=== PATIENT | female | born 1965 | race Caucasian/White ===

== ENCOUNTER → 2017-08-06 09:40 | Outpatient (CLI) | payer BC, SELFPAY ==
[2017-08-06 11:18] LABS: Alanine Aminotransferase 44 U/L (12-78); Albumin Level 3.7 gm/dL (3.4-5.0); Albumin/Globulin Ratio 1.1 (1.1-1.8); Alkaline Phosphatase 68 U/L (46-116); Anion Gap 11.2 mEq/L (5-15); Aspartate Amino Transferase 22 U/L (15-37); Bilirubin,Total 0.4 mg/dL (0.2-1.0); Blood Urea Nitrogen 16 mg/dL (7-18); Calcium 9.1 mg/dL (8.5-10.1); Carbon Dioxide 30 mmol/L (21.0-32.0); Chloride 105 mmol/L (98-107); Chol/HDL Ratio 3.5 (1-3.5); Cholesterol 176 mg/dL (140-200); Creatinine,Serum 0.72 mg/dL (0.55-1.02); Estimated Glomerular Filt Rate 85 ml/min (>60); GFR (African American) 103 ML/MIN (>60); Globulin 3.5 gm/dl (1.3-3.2); Glucose 97 mg/dL (74-106); HDL Cholesterol 51 mg/dL (29-89); LDL Cholesterol 110 mg/dL (0-130); Potassium 4.2 mmoL/L (3.5-5.1); Sodium 142 mmol/L (136-145); Thyroid Stimulating Hormone 1.51 uIU/ml (0.358-3.740); Total Protein,Serum 7.2 gm/dL (6.4-8.2); Triglycerides 73 mg/dL (30-200); VLDL Cholesterol 15 mg/dL (0-40)
== END ==
PROVIDERS: Visit Provider Physician Assistant
DX: Z13.29 Encounter for screening for other suspected endocrine disorder (principal); Z13.220 Encounter for screening for lipoid disorders
CPT/HCPCS: 36415; 80053; 80061; 84443

== ENCOUNTER → 2019-01-13 08:06 | Outpatient (CLI) | payer BC, SELFPAY ==
--- NOTE | 2019-01-13 08:09 | MM_ITS ---
PROCEDURE: MM DIG SCREENING MAMM BI W/CAD CLINICAL INDICATION: screening There is a history of breast cancer patient's mother diagnosed after menopause COMPARISON: DMDXUL DIG MAMM-DX UNILATERAL-LT from 05/01/2010 DMSB DIG MAMM-SCREEN EMILY from 10/13/2014 DMSB DIG MAMM-SCREEN EMILY W/CAD from 11/07/2016 TECHNIQUE: Standard CC and MLO images were obtained. R2 CAD reviewed. FINDINGS: Breasts are composed primarily of fat with minimal scattered fibroglandular densities in each breast. There is a stable tiny asymmetric density deep to the nipple left breast. There is no suspicious lesion and no suspicious microcalcifications. IMPRESSION: Fatty type breast parenchyma with no suspicious lesions seen BI-RAD Category: 1 Negative FOLLOW-UP: 1YR 1 Year Follow-up (A letter has been sent to the patient regarding results of the study.) Dictated by: Dr. Marshall Castro MD 01/14/2019 10:[address] Marshall Castro MD in [place] 01/14/2019 10:19
== END ==
PROVIDERS: PCP Psychiatry & Neurology Sleep Medicine; Visit Provider Obstetrics & Gynecology
DX: Z12.31 Encounter for screening mammogram for malignant neoplasm of breast (principal)
CPT/HCPCS: 77067

== ENCOUNTER → 2020-01-04 13:25 | Outpatient (CLI) | payer BC, SELFPAY ==
--- NOTE | 2020-01-04 13:29 | XR_ITS ---
PROCEDURE: XR FOOT RT MIN 3V CLINICAL INDICATION: INJURY TO TOE ON RT FOOT Pain COMPARISON: No exams were available for comparison FINDINGS: There is a nondisplaced fracture involving the mid to distal shaft of the proximal phalanx of the 5th digit. This is nondisplaced. There may also be a nondisplaced fracture of the midshaft of the proximal phalanx of the 4th toe. The joint spaces are well-preserved. No significant degenerative/arthritic changes. No erosive changes evident. Other findings:Hypertrophic changes are present dorsally at the navicular cuneiform joint with subchondral cystic change of the navicular dorsally. IMPRESSION: Nondisplaced fracture proximal phalanx 5th digit and questionable nondisplaced fracture proximal phalanx 4th toe. Please correlate with clinical parameters Dictated by: Trevor Ellis MD 01/04/2020 13:47 Trevor Ellis MD in [facility] 01/04/2020 13:47
== END ==
PROVIDERS: PCP Family Medicine; Visit Provider Family Medicine
DX: S99.921A Unspecified injury of right foot, initial encounter (principal)
CPT/HCPCS: 73630

== ENCOUNTER 2020-02-15 10:15 | Emergency (ER) | payer BC, SELFPAY ==
[2020-02-15 11:17] VITALS: BP 108/84; PULSE 63; RESP 18; TEMP 36.8; O2SAT 100; BMI 32.5
[2020-02-15 11:20] VITALS: BP 109/84; PULSE 63; RESP 18; TEMP 36.8; O2SAT 100
--- NOTE | 2020-02-15 11:20 | HMH.EDUTC ---
[facility] [place] Impression: Encounter for laboratory testing for COVID-19 virus Disposition: Home, Self-Care Condition on Discharge: Good Instructions: Preventing the Spread of Coronavirus Discharge Instructions Additional Instructions: *Monitor Temp, Over the counter Motrin or Tylenol as directed/as needed Tylenol every 4 hours and Motrin every 6 hours (as long as your family doctor has told you that you can take it) for fever or pain. and straight to ER if unable to lower temp less than 101.0 after medication given *Warm salt water gargles may help to soothe the throat *Throat Lozenges *Warm fluids like tea with honey may help to soothe the throat *Sleep elevated *Humidifier/Vaporizer Follow up IMMEDIATELY for new or worsening symptoms or no Noticeable improvement over the next 48-72 hours. 911 for difficulty breathing or swallowing You were tested for today for COVID19 your test result should be back in the next 24-48 hours, you may call to the [facility] to see if your test results are back in the next 48 hours [phone] [facility] hours are 9am-9pm You was given a handout with instructions for Self Quarantine and Self isolation for while you wait on test results and what to do if they are positive If you are positive the Health Dept will be contacting you also Referrals: Lina Tinajero MD [Primary Care Provider] - As needed Forms: Work/School Release Time of Disposition: 11:25 Medical Decision Making - Kiran Inquiry Pt receiving controlled substance: No Kiran was queried for this patient: No Vital Signs: 02/15/20 11:17 02/15/20 11:20 Temperature 98.2 F 98.2 F Temperature Source Oral Pulse Rate 63 Pulse Rate [Left] 63 Respiratory Rate 18 18 Blood Pressure 109/84 L Blood Pressure [Right Arm] 108/84 L Blood Pressure Mean [Right Arm] 92 Blood Pressure Source [Right Arm] Automatic Cuff Blood Pressure Position [Right Arm] Sitting 02 Sat by Pulse Oximetry 100 Oxygen Delivery Method Room Air Orders (Tests/Meds): ORDERS Category Date Time Status Covid-19 Nasal PCR Sendout [facility] 02/15/20 11:00 [place] [facility] [place] - General Stated complaint: Covid test Time Seen by Provider: 02/15/20 11:23 Mode of Arrival: Ambulatory Source of Information: Patient Limitations: No Limitations Description of Symptoms (Recalled from Triage Doc. by RN): Covid test asymptomatic HEENT Symptoms (Recalled from RN notes): No Resp Symptoms (Recalled from RN notes): No Skin Symptoms (Recalled from RN notes): No MS Symptoms (Recalled from RN notes): No Functional Status (Recalled from RN notes): wnl - History of Present Illness Provider Complaint: Patient states that her son woke up this morning having COVID symptoms and wanted to get tested for COVID Denies any symptoms at this time - Related Data Home Medications Medication Instructions Recorded Confirmed metoprolol tartrate 50 mg tablet 50 mg PO BID 11/25/17 12/05/18 amoxicillin 500 mg capsule 500 mg PO TID 12/14/19 Previous Rx's Medication Instructions Recorded conjugated estrogens 0.9 mg tablet 0.9 mg PO DAILY #30 tab 12/14/19 Allergies Allergy/AdvReac Type Severity Reaction Status Date / Time acetaminophen [From Lortab] Allergy Mild nauseated, Verified 02/15/20 11:20 shaking hydrocodone [From Lortab] Allergy Mild nauseated, Verified 02/15/20 11:20 shaking - Worker's Comp Is this a Worker's Comp case?: No Is this an [facility] Worker's Comp?: No Is this a Janice Worker's Comp?: No [facility] History - Hepatitis A Screen Drug use history?: No High risk sexual behaviors?: No History of sexually transmitted infection?: No Currently employed?: No Childcare worker?: No Do you have indoor plumbing?: Yes Do you have electricity?: Yes Attestation statement:: This patient has been screened for Hepatitis A risk factors. I have reviewed the patient's past medical history: Yes Comment: Heart Arrythmia. HBP Amputati
[2020-02-16 12:47] LABS: Covid-19 Nasal PCR Sendout Lex Not Detected
== END 2020-02-15 11:34 | disposition home or self-care (01) ==
PROVIDERS: Emergency Provider Nurse Practitioner; PCP Family Medicine
DX: Z20.828 Contact with and (suspected) exposure to other viral communicable diseases (principal)
CPT/HCPCS: 99201; U0004

== ENCOUNTER 2020-07-09 20:31 | Observation (INO) | payer BC, SELFPAY ==
[2020-07-09 20:44] VITALS: BP 153/69; PULSE 99; RESP 20; TEMP 36.8; O2SAT 99; BMI 32.5
--- NOTE | 2020-07-09 20:57 | CT_ITS ---
PROCEDURE INFORMATION: Exam: CT Lumbar Spine With Contrast Exam date and time: 07/09/2020 8:57 PM Age: 55 years old Clinical indication: Low back pain; Additional info: Severe lower back pain TECHNIQUE: Imaging protocol: Computed tomography images of the lumbar spine with intravenous contrast. Radiation optimization: All CT scans at this facility use at least one of these dose optimization techniques: automated exposure control; mA and/or kV adjustment per patient size (includes targeted exams where dose is matched to clinical indication); or iterative reconstruction. Contrast material: ISOVUE; Contrast volume: 70 ml; Contrast route: IV; COMPARISON: No relevant prior studies available. FINDINGS: Vertebrae: There is no evidence of acute fracture. The facet joints demonstrate mild degenerative hypertrophy and sclerosis. Discs/Spinal canal/Neural foramina: The lumbar spine demonstrates mild degenerative changes at multiple levels. Disc space narrowing and bilateral neural foraminal narrowing noted at L2-L3 and L5-S1. Soft tissues: Unremarkable. IMPRESSION: 1. The lumbar spine demonstrates mild degenerative changes at multiple levels. 2. Disc space narrowing and bilateral neural foraminal narrowing noted at L2-L3 and L5-S1. 3. No evidence of acute fracture.
--- NOTE | 2020-07-09 20:57 | CT_ITS ---
PROCEDURE INFORMATION: Exam: CT Abdomen And Pelvis With Contrast Exam date and time: 07/09/2020 8:57 PM Age: 55 years old Clinical indication: Pain; Other: Low back; Patient HX: Right side; Additional info: Severe lower back pain TECHNIQUE: Imaging protocol: Computed tomography of the abdomen and pelvis with contrast. Radiation optimization: All CT scans at this facility use at least one of these dose optimization techniques: automated exposure control; mA and/or kV adjustment per patient size (includes targeted exams where dose is matched to clinical indication); or iterative reconstruction. Contrast material: ISOVUE; Contrast volume: 70 ml; Contrast route: IV; COMPARISON: No relevant prior studies available. FINDINGS: Mediastinal space: A small hiatal hernia is present. Liver: There is a diffuse decrease in hepatic parenchymal density, consistent with mild fatty infiltration. Gallbladder and bile ducts: Normal. No calcified stones. No ductal dilation. Pancreas: Normal. No ductal dilation. Spleen: Normal. No splenomegaly. Adrenal glands: Normal. No mass. Kidneys and ureters: Normal. No hydronephrosis. Stomach and bowel: A large amount of stool is noted throughout the colon. Appendix: No evidence of appendicitis. Intraperitoneal space: Normal. No significant fluid collection. Vasculature: The vasculature demonstrates diffuse mild atherosclerotic calcification. Lymph nodes: Unremarkable. No enlarged lymph nodes. Urinary bladder: Unremarkable as visualized. Reproductive: Unremarkable as visualized. Bones/joints: The lumbar spine demonstrates mild degenerative changes at multiple levels. Soft tissues: There is a fat-containing umbilical hernia. IMPRESSION: 1. There is a diffuse decrease in hepatic parenchymal density, consistent with mild fatty infiltration. 2. A large amount of stool is noted throughout the colon. 3. The lumbar spine demonstrates mild degenerative changes at multiple levels. 4. There is a fat-containing umbilical hernia.
--- NOTE | 2020-07-09 21:10 | HMH.EDBACK ---
ED Disposition Clinical Impression: Lumbar radiculopathy, Intractable pain Disposition: Admitted as Observation Condition on Discharge: Good Referrals: Lina Tinajero MD [Primary Care Provider] - - Critical Care Critical Care Time: No Attestation: On 07/09/20, the high probability of a clinically significant, sudden or life threatening deterioration of the following system(s) required my full and direct attention, intervention and personal management. The time I documented below is in addition to time spent performing reported procedures but includes the following listed in this critical care notation. Medical Decision Making - Medical Records Medical records reviewed: Yes: I reviewed the patient's medical records. - Kiran Inquiry Pt receiving controlled substance: No Vital Signs: 07/09/20 20:44 07/09/20 21:14 07/09/20 21:37 Temperature 98.2 F Temperature Source Oral Pulse Rate 62 60 Pulse Rate [Right] 99 H Respiratory Rate 20 Blood Pressure 138/77 166/77 H Blood Pressure [Right Arm] 153/69 H Blood Pressure Mean [Right Arm] 97 Blood Pressure Source [Right Arm] Automatic Cuff Blood Pressure Position [Right Arm] Supine 02 Sat by Pulse Oximetry 99 99 99 Oxygen Delivery Method Room Air - Lab Data Lab results reviewed: Yes: I reviewed the patient's lab results. Lab Results 07/09/20 21:11: WBC 6.5, RBC 4.43, Hgb 13.5, Hct 41.3, MCV 93.2, MCH 30.4, MCHC 32.6, RDW 12.4, Plt Count 183, MPV 8.9, Neut % (Auto) 48.2, Lymph % (Auto) 37.9, [place] % (Auto) 7.9, Eos % (Auto) 5.0, Baso % (Auto) 1.0, Neut # (Auto) 3.1, Lymph # (Auto) 2.5, [place] # (Auto) 0.5, Eos # (Auto) 0.3, Baso # (Auto) 0.1, ESR 19 07/09/20 21:11: Sodium 139, Potassium 4.0, Chloride 107, Carbon Dioxide 27, Anion Gap 9.0, BUN 15, Creatinine 0.70, Estimated Creat Clear 158, Estimated GFR 87, Est GFR ( Amer) 106, Glucose 99, Calcium 9.2, Total Bilirubin 0.4, AST 44 H, ALT 38, Alkaline Phosphatase 69, C-Reactive Protein 3.8, Total Protein 7.5, Albumin 4.2, Globulin 3.3 H, Albumin/Globulin Ratio 1.3, Procalcitonin 0.052 07/09/20 21:23: Urine Color Yellow, Urine Appearance Clear, Urine pH 7.0, Ur Specific [place] 1.010, Urine Protein Negative, Urine Glucose (UA) Negative, Urine Ketones Negative, Urine Blood 1+, Urine Nitrate Negative, Urine Bilirubin Negative, Urine Urobilinogen 0.2, Ur Leukocyte Esterase Negative, Urine RBC Occasional, Urine WBC Occasional, Ur Squamous Epith Cells 10-20, Urine Bacteria None Result diagrams: 07/09/20 21:11 07/09/20 21:11 Orders (Tests/Meds): ED MEDICATIONS Generic Name Dose Route Start Last Admin Trade Name Freq PRN Reason Stop Dose Admin Sodium Chloride 1,000 mls @ 999 mls/hr 07/09/20 21:00 07/09/20 21:13 Sod Chlor 0.9% 1000ml Bag IV 07/09/20 22:00 999 mls/hr .Q1H1M MAR Administration Discontinued Medications Generic Name Dose Route Start Last Admin Trade Name Freq PRN Reason Stop Dose Admin Hydromorphone HCl 1 mg 07/09/20 20:57 07/09/20 21:14 Hydromorphone 2mg/Ml Syringe IV 07/09/20 20:58 1 mg ONCE ONE Administration Hydromorphone HCl 1 mg 07/09/20 21:31 07/09/20 21:32 Hydromorphone 2mg/Ml Syringe IV 07/09/20 21:32 1 mg ONCE ONE Administration Iopamidol 140 ml 07/09/20 22:07 07/09/20 22:08 Iopamidol-370 (76%);100ml Bottle IV 07/09/20 22:08 140 ml ONCE ONE Administration Ketorolac Tromethamine 30 mg 07/09/20 21:31 07/09/20 21:32 Ketorolac 30mg/Ml Vial IV 07/09/20 21:32 30 mg ONCE ONE Administration Methylprednisolone Sodium Succinate 125 mg 07/09/20 20:57 07/09/20 21:14 Methylprednisolone Sod Succ 125mg Vial IV 07/09/20 20:58 125 mg ONCE ONE Administration Ondansetron HCl 4 mg 07/09/20 20:57 07/09/20 21:14 Ondansetron 4mg/2ml Vial IV 07/09/20 20:58 4 mg ONCE ONE Administration Sodium Chloride 10 ml 07/09/20 22:07 07/09/20 22:08 Sodium Chloride 0.9% 10ml Syr (Rad Only) IV 07/09/20 22:08 10 ml
[2020-07-09 21:14] VITALS: BP 138/77; PULSE 62; O2SAT 99
[2020-07-09 21:23] LABS: Basophils # 0.1 K/mm3 (0-0.2); Eosinophils # 0.3 K/mm3 (0.0-0.4); Hematocrit 41.3 % (37.0-47.0); Hemoglobin 13.5 g/dL (12.2-16.2); Lymphocytes # 2.5 K/mm3 (0.7-4.5); Lymphocytes % 37.9 % (10-50); Mean Corpuscular HGB Conc 32.6 g/dL (31.8-35.4); Mean Corpuscular Hemoglobin 30.4 pg (27.0-31.2); Mean Corpuscular Volume 93.2 fl (81-99); Mean Platelet Volume 8.9 fl (7.4-10.4); Monocytes # 0.5 K/mm3 (0.1-1.0); Monocytes % 7.9 % (1.7-9.3); Neutrophils # 3.1 K/mm3 (1.8-7.8); Neutrophils % 48.2 % (37.0-80.0); Platelet Count 183 K/mm3 (142-424); Red Blood Count 4.43 M/mm3 (4.20-5.40); Red Cell Distribution Width 12.4 % (11.5-17.5); White Blood Count 6.5 K/mm3 (4.8-10.8)
[2020-07-09 21:28] LABS: Microscopic, Urine URINE MICROSCOPIC (MICROSCOPIC)
[2020-07-09 21:29] LABS: Alanine Aminotransferase 38 U/L (12-78); Albumin Level 4.2 g/dl (3.5-5.0); Albumin/Globulin Ratio 1.3 (1.1-1.8); Alkaline Phosphatase 69 U/L (38-126); Aspartate Amino Transferase 44 U/L (14-36); Bilirubin,Total 0.4 mg/dl (0.2-1.3); Blood Urea Nitrogen 15 mg/dl (7-17); Calcium 9.2 mg/dl (8.4-10.2); Carbon Dioxide 27 mmol/L (22.0-30.0); Chloride 107 mmol/L (98-107); Creatinine Clearance Estimated 158 mL/min (50-200); Estimated Glomerular Filt Rate 87 ml/min (>60); GFR (African American) 106 ML/MIN (>60); Globulin 3.3 g/dL (1.3-3.2); Glucose 99 mg/dl (74-100); Sodium 139 mmol/L (136-145); Total Protein,Serum 7.5 g/dl (6.3-8.2)
[2020-07-09 21:33] LABS: Appearance,Urine CLEAR (Clear); Bilirubin,Urine Negative (Negative); Blood, Urine 1+ (Negative); Color,Urine YELLOW (Yellow); Glucose,Urine (UA) Negative (Negative); Ketones,Urine Negative (Negative); Leukocyte Esterase,Urine Negative (Negative); Nitrate,Urine Negative (Negative); Protein,Urine Negative (Negative); Urobilinogen,Urine 0.2 EU/dl (0.2)
[2020-07-09 21:34] LABS: C-Reactive Protein 3.8 mg/L (0-4)
[2020-07-09 21:37] VITALS: BP 166/77; PULSE 60; O2SAT 99
[2020-07-09 21:44] LABS: RBC,Urine Occasional #/hpf (0-3); WBC,Urine Occasional #/hpf (0-3)
[2020-07-09 21:48] LABS: Procalcitonin 0.052 ng/mL (0.0-2.0)
[2020-07-09 21:51] LABS: Erythrocyte Sedimentation Rate 19 mm/hr (0-30)
--- NOTE | 2020-07-09 22:03 | PC.NURSE ---
pt gone to radiology.
[2020-07-10 01:55] VITALS: BP 118/58; PULSE 60; RESP 16; TEMP 36.8; O2SAT 94
[2020-07-10 02:09] VITALS: BP 154/78; PULSE 60; RESP 16; TEMP 36.6; O2SAT 95; BMI 32.8
--- NOTE | 2020-07-10 02:09 | PC.NURSE ---
patient up to floor via wheelchair.
--- NOTE | 2020-07-10 04:00 | PC.NURSE ---
Patient arrived on floor at 0209 and in no acute distress. Patient admitted for Lower back pain. When patient arrived on floor, she said her pain was 0, 0-10 scale. Requested at the sign of pain to request pain Rx in order to avoid breakthrough. Patient resting comfortably with eyes closed.
--- NOTE | 2020-07-10 04:00 | PC.NURSE ---
I got admission vitals at 02:09 AND SINCE the patient was in so much discomfort and had fallen asleep the nurse just told me not to disturb her for 04:00 vitals
[2020-07-10 07:18] LABS: Basophils % 0.1 % (0.1-2.0); Eosinophils % 0.1 % (0.1-12.0); Hematocrit 40.3 % (37.0-47.0); Hemoglobin 13.3 g/dL (12.2-16.2); Lymphocytes # 0.8 K/mm3 (0.7-4.5); Lymphocytes % 16.9 % (10-50); Mean Corpuscular Hemoglobin 30.6 pg (27.0-31.2); Mean Corpuscular Volume 92.7 fl (81-99); Mean Platelet Volume 9.1 fl (7.4-10.4); Monocytes # 0.1 K/mm3 (0.1-1.0); Monocytes % 1.3 % (1.7-9.3); Neutrophils # 3.8 K/mm3 (1.8-7.8); Neutrophils % 81.6 % (37.0-80.0); Platelet Count 156 K/mm3 (142-424); Red Blood Count 4.35 M/mm3 (4.20-5.40); Red Cell Distribution Width 12.3 % (11.5-17.5); White Blood Count 4.6 K/mm3 (4.8-10.8)
[2020-07-10 07:29] LABS: Anion Gap 12.6 mEq/L (5-15); Blood Urea Nitrogen 15 mg/dl (7-17); Calcium 8.9 mg/dl (8.4-10.2); Carbon Dioxide 24 mmol/L (22.0-30.0); Chloride 106 mmol/L (98-107); Creatinine Clearance Estimated 186 mL/min (50-200); Estimated Glomerular Filt Rate 104 ml/min (>60); GFR (African American) 126 ML/MIN (>60); Glucose 175 mg/dl (74-100); Potassium 4.6 mmoL/L (3.5-5.1); Sodium 138 mmol/L (136-145)
[2020-07-10 07:35] VITALS: BP 147/73; PULSE 65; RESP 18; TEMP 36.7; O2SAT 95
--- NOTE | 2020-07-10 09:24 | HMH.PHAINT ---
MEDICATION RECONCILIATION COMPLETED ON PATIENT USING EXTERNAL FILL HISTORY FROM PHARMACY AND PATIENT INTERVIEW. -CURLY MUNIZ, RAVEND
--- NOTE | 2020-07-10 11:30 | P.CONPHA_ITS ---
[facility] Pharmacy VTE Monitoring - Patient Demographics Admission date: 07/09/20 Report Date: 07/10/20 Time: 11:30 Allergies/Adverse Reactions: Patient Allergies acetaminophen [From Lortab] Allergy (Mild, Verified 02/15/20 11:20) nauseated, shaking hydrocodone [From Lortab] Allergy (Mild, Verified 02/15/20 11:20) nauseated, shaking Height: 1.83 m Weight: 109.769 kg Patient Problems: Current Active Problems Lumbar radiculopathy (Acute) Intractable pain (Acute) - VTE Risk Labs: VTE Related Lab Results Hgb 13.3 g/dL (12.2-16.2) 07/10/20 06:15 Hct 40.3 % (37.0-47.0) 07/10/20 06:15 Plt Count 156 K/mm3 (142-424) 07/10/20 06:15 BUN 15 mg/dl (7-17) 07/10/20 06:15 Creatinine 0.60 mg/dl (0.52-1.04) 07/10/20 06:15 Estimated Creat Clear 186 mL/min (50-200) 07/10/20 06:15 VTE Risk Level: Very Low Risk - Prophylaxis VTE Prophylaxis Ordered?: Yes Types of VTE Prophylaxis: TEDS Knee High Location of Applied Device: Bilateral Lower Extremeties
--- NOTE | 2020-07-10 11:30 | HMH.PHAINT ---
MEDICATION RECONCILIATION COMPLETED ON PATIENT USING EXTERNAL FILL HISTORY FROM PHARMACY AND PATIENT INTERVIEW. -CURLY MUNIZ, RAVEND
--- NOTE | 2020-07-10 12:46 | HMH.HP ---
*Admission Date: 07/09/20 *Chief complaint: Low back pain on the right *History of present illness: This 55-year-old white female reports progressive low back pain on the right side. Its been worse over the past several days. It became so severe that she presented to the emergency room last night. Her pain was rated a 10 out of 10 according to her. She was unable to get much relief in the emergency room and was admitted. This morning she feels somewhat better. In the emergency room it was reported that she had pain down the right leg. This morning she states that the pain is localized to the low back on the right side and indicates the sacroiliac joint area. She does not report a specific injury. She is generally healthy. CT the in the emergency room showed some disc disease in the lumbosacral area. See report. [facility] History Medical History: Denies:: Diabetes Mellitus Type 1, Diabetes Mellitus Type 2 *Have you ever received a pneumonia vaccine?: No *Have you received a flu vaccine this season?: No Other Medical History: Denies: Fibromyalgia, Osteoporosis Laterality Cases: Right: Other (Rotator cuff repair 2015) Other Surgeries: Yes: Hysterectomy-Partial (Cervical cancer in situ) Amputation: No Fractures: No Comment: Surgery for varicose veins in 2006. Closed nondisplaced fracture of the middle phalanx of the lesser toe the right foot December 2019. - *Social History Smoking Status: Never smoker Alcohol Intake: never Substance Use Type: denies use *Occupational Status:: employed Housing: house Household Members: significant other, children *Travel in the last 8 weeks: None Family Hx:: Cancer (Mother with breast cancer), Coronary Artery Disease (Her maternal aunts), Diabetes Review of Systems - Constitutional Denies anorexia, Denies body ache(s), Denies chills - Eyes Denies blurry vision - ENT Denies abnormal hearing, Denies nasal congestion, Denies pain with swallowing - *Cardiovascular Denies chest pain, Denies generalized swelling, Denies leg swelling, Denies lightheadedness - *Respiratory Denies change in phlegm color, Denies chest congestion, Denies cough - *Gastrointestinal Denies abdominal pain, Denies change in bowel habits - *Genitourinary Denies abnormal vaginal bleeding - *Musculoskeletal Reports back pain, Reports radiating pain into limb, Denies muscle weakness, Denies body aches - Integumentary/Breasts Denies breast lump - *Neurologic Denies headache(s), Denies seizure-like activity - Allergic/Immunologic Denies GI upset with certain foods Meds Home Medications Medication Instructions Recorded Confirmed Type Estrogens, Conjugated [Premarin] 0.9 mg PO DAILY 07/10/20 07/10/20 History Metoprolol Succinate [Metoprolol 50 mg PO DAILY 07/10/20 07/10/20 History Succinate 50mg Tablet*] Allergies Allergy/AdvReac Type Severity Reaction Status Date / Time acetaminophen [From Lortab] Allergy Mild nauseated, Verified 02/15/20 11:20 shaking hydrocodone [From Lortab] Allergy Mild nauseated, Verified 02/15/20 11:20 shaking Exam Vital signs and Labs for Last 24 Hours: Temp Pulse Resp BP Pulse Ox 98.0 F 65 18 147/73 H 95 07/10/20 07:35 07/10/20 07:35 07/10/20 07:35 07/10/20 07:35 07/10/20 07:35 Laboratory Results - last 24 hr 07/09/20 21:11: WBC 6.5, RBC 4.43, Hgb 13.5, Hct 41.3, MCV 93.2, MCH 30.4, MCHC 32.6, RDW 12.4, Plt Count 183, MPV 8.9, Neut % (Auto) 48.2, Lymph % (Auto) 37.9, [place] % (Auto) 7.9, Eos % (Auto) 5.0, Baso % (Auto) 1.0, Neut # (Auto) 3.1, Lymph # (Auto) 2.5, [place] # (Auto) 0.5, Eos # (Auto) 0.3, Baso # (Auto) 0.1, ESR 19 07/09/20 21:11: Sodium 139, Potassium 4.0, Chloride 107, Carbon Dioxide 27, Anion Gap 9.0, BUN 15, Creatinine 0.70, Estimated Creat Clear 158, Estimated GFR 87, Est GFR ( Amer) 106, Glucose 99, Calcium 9.2, Total Bilirubin 0.4, AST 44 H, ALT 38, Alkaline Phosphatase 69, C-Reactive Protein 3.8, Total Protein 7.5
--- NOTE | 2020-07-10 13:14 | HMH.ACPN2 ---
Internal Medicine - PN: Subj *Date: 07/10/20 *Time: 13:14 Interval history: PROCEDURE NOTE: The patient stated that she is feeling much better. I was able to locate a trigger point at the right SI joint inferiorly. She agreed to an injection. The area was prepped with Betadine. She received an injection of 1-1/2 cc of lidocaine and 1 cc of Celestone at the site of tenderness. After the injection she had significant relief of pain. She was able to get up and move about without discomfort. Area was cleaned with hydrogen peroxide and a Band-Aid was placed. She was told that the lidocaine would wear off in an hour and that she might experience pain again, but that the Celestone would continue to work against inflammation to give relief. There were no complications to the procedure. Exam Vital signs and Labs for Last 24 Hours: Temp Pulse Resp BP Pulse Ox 98.0 F 65 18 147/73 H 95 07/10/20 07:35 07/10/20 07:35 07/10/20 07:35 07/10/20 07:35 07/10/20 07:35 Laboratory Results - last 24 hr 07/09/20 21:11: WBC 6.5, RBC 4.43, Hgb 13.5, Hct 41.3, MCV 93.2, MCH 30.4, MCHC 32.6, RDW 12.4, Plt Count 183, MPV 8.9, Neut % (Auto) 48.2, Lymph % (Auto) 37.9, [place] % (Auto) 7.9, Eos % (Auto) 5.0, Baso % (Auto) 1.0, Neut # (Auto) 3.1, Lymph # (Auto) 2.5, [place] # (Auto) 0.5, Eos # (Auto) 0.3, Baso # (Auto) 0.1, ESR 19 07/09/20 21:11: Sodium 139, Potassium 4.0, Chloride 107, Carbon Dioxide 27, Anion Gap 9.0, BUN 15, Creatinine 0.70, Estimated Creat Clear 158, Estimated GFR 87, Est GFR ( Amer) 106, Glucose 99, Calcium 9.2, Total Bilirubin 0.4, AST 44 H, ALT 38, Alkaline Phosphatase 69, C-Reactive Protein 3.8, Total Protein 7.5, Albumin 4.2, Globulin 3.3 H, Albumin/Globulin Ratio 1.3, Procalcitonin 0.052 07/09/20 21:23: Urine Color Yellow, Urine Appearance Clear, Urine pH 7.0, Ur Specific [place] 1.010, Urine Protein Negative, Urine Glucose (UA) Negative, Urine Ketones Negative, Urine Blood 1+, Urine Nitrate Negative, Urine Bilirubin Negative, Urine Urobilinogen 0.2, Ur Leukocyte Esterase Negative, Urine RBC Occasional, Urine WBC Occasional, Ur Squamous Epith Cells 10-20, Urine Bacteria None 07/10/20 06:15: WBC 4.6 L D, RBC 4.35, Hgb 13.3, Hct 40.3, MCV 92.7, MCH 30.6, MCHC 33.0, RDW 12.3, Plt Count 156, MPV 9.1, Neut % (Auto) 81.6 H, Lymph % (Auto) 16.9, [place] % (Auto) 1.3 L, Eos % (Auto) 0.1, Baso % (Auto) 0.1, Neut # (Auto) 3.8, Lymph # (Auto) 0.8, [place] # (Auto) 0.1, Eos # (Auto) 0.0, Baso # (Auto) 0.0 07/10/20 06:15: Sodium 138, Potassium 4.6, Chloride 106, Carbon Dioxide 24, Anion Gap 12.6, BUN 15, Creatinine 0.60, Estimated Creat Clear 186, Estimated GFR 104, Est GFR ( Amer) 126, Glucose 175 H D, Calcium 8.9, Magnesium 2.0 I & O for Last 24 hours: Intake & Output 07/08/20 07/09/20 07/10/20 07/11/20 11:59 11:59 11:59 11:59 Intake Total 1640 / 1640 Balance 1640 / 1640 Weight 242 lb Microbiology Reports for the Last 24 Hours: Microbiology 07/10/20 00:50 Nasopharyngeal Coronavirus COVID-19 PCR - Final Assessment and Plan (1) Sacroiliac joint pain Status: Acute Category: Medical Code(s): M53.3 - Sacrococcygeal disorders, not elsewhere classified (2) Intractable pain Status: Acute Category: Medical Code(s): R52 - Pain, unspecified (3) Lumbar radiculopathy Status: Acute Category: Medical Code(s): M54.16 - Radiculopathy, lumbar region (4) Family history of breast cancer in mother Status: Acute Category: Medical Code(s): Z80.3 - Family history of malignant neoplasm of breast (5) History of hysterectomy Status: Acute Category: Surgical Code(s): Z90.710 - Acquired absence of both cervix and uterus - Assessment and plan all Dx Assessment and Plan for all problems:: I plan to discharge patient home. She will be continued on prednisone 20 mg a day. She will receive hydrocodone 7.5MG/apap 325MG 4 times daily as needed, #15. She will be seen in follow-up in the offic
--- NOTE | 2020-07-15 19:22 | HMH.DCSUM ---
General - General Admission date:: 07/10/20 Discharge date: 07/10/20 HPI HPI: This 55-year-old white female reports progressive low back pain on the right side. Its been worse over the past several days. It became so severe that she presented to the emergency room last night. Her pain was rated a 10 out of 10 according to her. She was unable to get much relief in the emergency room and was admitted. This morning she feels somewhat better. In the emergency room it was reported that she had pain down the right leg. This morning she states that the pain is localized to the low back on the right side and indicates the sacroiliac joint area. She does not report a specific injury. She is generally healthy. CT the in the emergency room showed some disc disease in the lumbosacral area. See report. Hospital Course Hospital Course: The patient's abdominal/pelvic CT showed a large amount of stool in the colon and degenerative changes of the lumbar spine. There was also a fat-containing umbilical hernia. Her lumbar spine CT showed degenerative changes at multiple levels along with disc space narrowing of bilateral neural foraminal narrowing noted at L2-L3 and L5-S1. The patient was admitted and started on pain control. Dr. Tinajero injected Celestone and lidocaine at the site of tenderness near the SI joint on the right. There were no complications with the procedure and she was stable to be discharged home on prednisone 20 mg a day. She was also sent home with [facility] for pain. She will follow-up with Dr. Tinajero in the office. Objective Vital signs: Temp Pulse Resp BP Pulse Ox 98.0 F 65 18 147/73 H 95 07/10/20 07:35 07/10/20 07:35 07/10/20 07:35 07/10/20 07:35 07/10/20 07:35 Narrative: - Constitutional no acute distress - *Routine HEENT Exam Head: Present: normocephalic Eye: Present: PERRL. Absent: conjunctival icterus ENT: Present: mucous membranes moist - *Routine Neck Exam Present: supple - Routine Chest/Breast/Axilla Exam Chest wall: Absent: tenderness - *Routine Respiratory Exam Present: CTA bilaterally - *Routine Cardiovascular Exam Present: RRR. Absent: ectopic - *Routine Abdominal Exam Present: soft. Absent: tenderness - *Routine Rectal Exam Patient deferred: digital exam (Deferred) - *Routine Extremities Exam Absent: edema - Routine Back/Spine/Pelvis Exam Back/Spine: Present: pain with rotation. Absent: paraspinal tenderness (Specific tenderness at the right SI joint) Pelvis: Present: SI joint tenderness - *Routine Neurological Exam Present: alert, oriented X3, normal tone. Absent: sensory deficit, motor deficit Dorsiflexion of the great toes is strong and equal bilaterally. Deep tendon reflexes at the patella are equal and 2+ DS: Diagnosis - Discharge Diagnosis (1) Sacroiliac joint pain Status: Acute (2) Intractable pain Status: Acute (3) Lumbar radiculopathy Status: Acute (4) Family history of breast cancer in mother Status: Acute (5) History of hysterectomy Status: Acute Discharge Plan - Patient Discharge Instructions ACTIVITY: Limited activity DIET: advance to your usual diet Patient Instructions: DI for Lumbar Radiculopathy Forms: [facility] Work Release - Follow up Plan Follow up with: Lina Tinajero MD [Primary Care Provider] - (Appt Saturday) Disposition: Home, Self-Care Condition at discharge:: Stable Home Medications: Home Medications Medication Instructions Recorded Confirmed Type Estrogens, Conjugated [Premarin] 0.9 mg PO DAILY 07/10/20 07/10/20 History Metoprolol Succinate [Metoprolol 50 mg PO DAILY 07/10/20 07/10/20 History Succinate 50mg Tablet*] Tramadol HCl [Tramadol 50mg 50 mg PO QIDP PRN #15 tab 07/10/20 Rx Tab] predniSONE [Prednisone 20mg 20 mg PO DAILY #5 tab 07/10/20 Rx Tab] Prescriptions/Medication Reconciliation: New Tramadol HCl [Tramadol 50mg Tab
== END 2020-07-10 14:38 | disposition home or self-care (01) ==
LOC: ER 07-10 00:42 → 2ND 07-10 01:07
PROVIDERS: Admitting Provider Family Medicine; Emergency Provider Emergency Medicine; PCP Family Medicine; Visit Provider Family Medicine
DX: M54.16 Radiculopathy, lumbar region (principal); M53.3 Sacrococcygeal disorders, not elsewhere classified; Z80.3 Family history of malignant neoplasm of breast; Z90.710 Acquired absence of both cervix and uterus
CPT/HCPCS: 36415; 72132; 74177; 80048; 80053; 81001; 83735; 84145; 85025; 85651; 86140; 96365; 96375; 96376; 99284; G0378; J2405; Q9967; U0003

== ENCOUNTER → 2021-02-09 07:44 | Outpatient (CLI) | payer BC, SELFPAY ==
--- NOTE | 2021-02-09 07:51 | MM_ITS ---
PROCEDURE INFORMATION: Exam: MG Bilateral Screening 3D Mammography Exam date and time: 02/09/2021 7:51 AM Age: 56 years old Clinical indication: Encounter for screening mammogram for malignant neoplasm of breast TECHNIQUE: Imaging protocol: Bilateral screening tomosynthesis and 2D mammography including computer-aided detection (CAD) when performed. COMPARISON: 1. MG MM DIG SCREENING MAMM BI W/CAD 01/13/2019 8:32 AM 2. MG DMSB DIG MAMM-SCREEN EMILY W/CAD 11/07/2016 3:45 PM FINDINGS: MAMMOGRAPHY: Breast composition: The breasts are almost entirely fatty. Mass: None. Architectural distortion: None. Calcifications: No suspicious calcifications. Asymmetric density: None. Skin thickening: None. Axillary adenopathy: None. IMPRESSION: No mammographic evidence of malignancy. Annual screening is recommended unless otherwise clinically indicated. ASSESSMENT: BI-RADS Category 1: Negative
== END ==
PROVIDERS: PCP Family Medicine; Visit Provider Obstetrics & Gynecology
DX: Z12.31 Encounter for screening mammogram for malignant neoplasm of breast (principal)
CPT/HCPCS: 77063; 77067

== ENCOUNTER → 2021-02-19 10:23 | Outpatient (CLI) | payer BC, SELFPAY | PROVIDERS: PCP Family Medicine; Visit Provider Nurse Practitioner | DX: U07.1 COVID-19 (principal) | CPT/HCPCS: C9803; U0003; U0005 ==

== ENCOUNTER → 2021-10-23 12:02 | Outpatient (CLI) | payer BC, SELFPAY ==
--- NOTE | 2021-10-23 12:08 | XR_ITS ---
FINAL REPORT CLINICAL HISTORY: ANKLE PAIN,LEFT FINDINGS: LEFT ANKLE: Three views of the left ankle were obtained. There is no acute fracture or dislocation. Mild degenerative changes are seen. The mortise is intact. There is a plantar calcaneal spur. There is a chronic calcification inferior to the medial malleolus. There is no soft tissue abnormality. IMPRESSION: No acute bony abnormality. Reviewed, Interpreted and Dictated by Jed Rubio III, MD Transcribed by Gayle Gonzalez Authenticated and [facility]
== END ==
PROVIDERS: PCP Family Medicine; Visit Provider Nurse Practitioner Family
DX: M25.572 Pain in left ankle and joints of left foot (principal)
CPT/HCPCS: 73610

== ENCOUNTER → 2021-12-15 11:40 | Outpatient (CLI) | payer BC, SELFPAY ==
--- NOTE | 2021-12-15 11:50 | XR_ITS ---
FINAL REPORT CLINICAL HISTORY: foot pain FINDINGS: LEFT FOOT Three views of the left foot demonstrate no acute fracture or dislocation. The visualized joint spaces are normally aligned. There are mild degenerative changes. There is a plantar calcaneal spur. IMPRESSION: Mild degenerative change with no acute bony abnormality. Reviewed, Interpreted and Dictated by Jed Rubio III, MD Transcribed by Lorenza Murry Authenticated and [facility]
== END ==
PROVIDERS: PCP Family Medicine; Visit Provider Orthopaedic Surgery
DX: M79.672 Pain in left foot (principal)
CPT/HCPCS: 73630

== ENCOUNTER → 2021-12-29 14:01 | Outpatient (CLI) | payer BC, SELFPAY ==
--- NOTE | 2021-12-29 14:01 | MR_ITS ---
FINAL REPORT CLINICAL HISTORY: ankle pain. 12 YEARS AGO TORE TENDON. MEDIAL SIDED FOOT PAIN NEAR ARCH. NO RECENT INJURY OR TRAUMA. PAIN WHEN BENDING OR EXTENDING. FINDINGS: Multiplanar MR imaging of the left ankle was performed without contrast. Mild degenerative changes are present. The bony structures are intact without evidence of fracture, bone bruise or marrow edema. No osteochondral lesion is identified. The anterior talofibular and calcaneofibular ligaments are not seen, presumably torn. There is posterior tibial tendinosis, tenosynovitis, with a small longitudinal tear. There is tendinosis of the anterior tibial tendon. There is thickening of the posterior plantar aponeurosis with a plantar fasciitis and a small partial tear. Small tibiotalar joint effusion is identified. The musculature is intact. There is no evidence of soft tissue mass or cyst. IMPRESSION: Presumed tears of the anterior talofibular and calcaneofibular ligaments. Posterior tibial tendinosis, tenosynovitis with small partial tear. Tendinosis of the anterior tibial tendon. Plantar fasciitis with a small partial tear. Reviewed, Interpreted and Dictated by Jed Rubio III, MD Transcribed by Alejandra Smith Authenticated and [facility]
== END ==
PROVIDERS: PCP Family Medicine; Visit Provider Orthopaedic Surgery
DX: M25.572 Pain in left ankle and joints of left foot (principal)
CPT/HCPCS: 73721

== ENCOUNTER → 2022-01-25 15:10 | Outpatient (CLI) | payer BC, SELFPAY ==
--- NOTE | 2022-01-25 15:10 | MM_ITS ---
PROCEDURE INFORMATION: Exam: MG Bilateral Diagnostic Breast Tomosynthesis Exam date and time: 01/25/2022 3:05 PM Age: 56 years old Clinical indication: Palpable abnormality in the right breast TECHNIQUE: Imaging protocol: Bilateral Diagnostic tomosynthesis and 2D mammography including computer-aided detection (CAD) when performed. Unilateral or bilateral exam. COMPARISON: 1. MG MM DIG SCREENING MAMM BI W/CAD 02/09/2021 7:58 AM 2. MG MM DIG SCREENING MAMM BI W/CAD 01/13/2019 8:32 AM FINDINGS: MAMMOGRAPHY: The breast tissue is almost entirely fatty. There is no stellate mass, architectural distortion or suspicious microcalcifications in either breast to suggest malignancy. A skin marker was placed over an area of palpable concern in the right approximate 6 o'clock axis No skin thickening or axillary adenopathy. IMPRESSION: Patient to return for right breast ultrasound for full evaluation of a palpable abnormality. ASSESSMENT: BI-RADS Category 0: Incomplete- Need Additional Imaging Evaluation and/or Prior Mammograms for Comparison
== END ==
PROVIDERS: PCP Family Medicine; Visit Provider Obstetrics & Gynecology
DX: Z12.31 Encounter for screening mammogram for malignant neoplasm of breast (principal)
CPT/HCPCS: 77063; 77067

== ENCOUNTER → 2022-03-05 10:36 | Outpatient (CLI) | payer BC, SELFPAY ==
--- NOTE | 2022-03-05 10:40 | US_ITS ---
PROCEDURE INFORMATION: Exam: US Right Breast, Complete Exam date and time: 03/05/2022 11:06 AM Age: 57 years old Clinical indication: Dr cass mass 6:00; RT. Breast lump TECHNIQUE: Imaging protocol: Complete ultrasound of all four quadrants of the Right breast and the retroareolar regions, including ultrasound of the axilla when performed. COMPARISON: MG MM DIG SCREENING MAMM BI W/CAD 01/25/2022 3:05 PM FINDINGS: Breast: Sonographic images of the right breast including the retroareolar region, all 4 quadrants and the axilla do not demonstrate any solid or cystic masses. This is with particular attention to the 6 o'clock axis where a palpable abnormality was noted. Predominantly adipose tissue is noted. No architectural distortion or acoustical shadowing. No skin thickening or axillary adenopathy. Review of the patient's most recent mammogram dated 01/25/2022 does not demonstrate any suspicious findings. IMPRESSION: No sonographic evidence of malignancy. Further evaluation of a palpable abnormality should be based on clinical grounds regardless of radiographic findings or lack thereof.Annual mammographic screening is recommended unless otherwise clinically indicated. ASSESSMENT: BI-RADS Category 1: Negative
--- NOTE | 2022-03-05 10:41 | CT_ITS ---
FINAL REPORT TECHNIQUE: Thin section axial CT images of the facial bones and sinuses were obtained without contrast. Coronal reformatted images were also obtained. This study was performed with techniques to keep radiation doses as low as reasonably achievable, (ALARA). Individualized dose reduction techniques using automated exposure control or adjustment of mA and/or kV according to the patient's size were employed. CLINICAL HISTORY: SINUSITIS FINDINGS: CT SINUSES There is no evidence of mucosal thickening. No fluid levels are identified. The ostiomeatal units have an unremarkable appearance. There is mild rightward nasal septal deviation. There is paradoxical middle turbinates. No fracture or acute bony abnormality is identified. IMPRESSION: No evidence of mucosal thickening. Paradoxical middle turbinates. Reviewed, Interpreted and Dictated by Jed Ruboi III, MD Transcribed by Lorenza Murry Authenticated and [facility]
== END ==
PROVIDERS: PCP Family Medicine; Visit Provider Family Medicine
DX: N63.0 Unspecified lump in unspecified breast (principal); J01.90 Acute sinusitis, unspecified
CPT/HCPCS: 70486; 76641

== ENCOUNTER 2022-04-08 08:00 | Emergency (ER) | payer BC, SELFPAY ==
[2022-04-08 08:10] VITALS: BP 124/70; PULSE 73; RESP 20; TEMP 37.8; O2SAT 99; BMI 31.8
--- NOTE | 2022-04-08 08:13 | EXP.UTC ---
Discharge Plan Disposition Patient Disposition: Home, Self-Care Condition: Good Prescriptions Prescriptions: New amoxicillin [amoxicillin] 500 mg tablet 500 mg PO TID 10 Days Qty: 30 0RF benzonatate [benzonatate] 100 mg capsule 100 mg PO TIDP PRN (Reason: Cough) Qty: 30 0RF methylprednisolone 4 mg Tablets,Dose Pack 4 mg PO DIRECTED Qty: 21 0RF No Action conjugated estrogens 0.9 mg tablet 0.9 mg PO DAILY Qty: 30 11RF Rx Instructions: cyclically metoprolol succinate 50 MG tablet extended release 24 hr 50 mg PO DAILY Referrals Follow up/Referrals: Lina Tinajero MD [Primary Care Provider] - See instructions Activity Restrictions/Add. Instructions Additional Instructions/Restrictions: Drink plenty of fluids. Take tylenol or ibuprofen for pain or fever. Take the medications as directed. Follow up with your regular doctor. GO TO THE ER FOR ANY WORSENING SYMPTOMS Clinical Impressions Clinical Impression: Pharyngitis, Acute viral syndrome Stand Alone Forms Stand Alone Forms: Work/School Release Instructions Patient Instructions: Sore Throat, DI for Pharyngitis/Tonsillopharyngitis -- Adult, Coronavirus Disease 2019, Preventing the Spread of Coronavirus Discharge Instructions [place] ED Provider: [place] [facility] [place] General Stated complaint: sore throat,body aches,ear pain Time Seen by Provider: 04/08/22 08:13 History of Present Illness Provider Complaint: She states that for the past 5 days she has had sore throat, chills, chest congestion, and sinus congestion. Related Data Home Medications Medication Instructions Recorded Confirmed metoprolol succinate 50 mg 50 mg PO DAILY Hypertension 07/10/20 04/08/22 tablet,extended release 24 hr Previous Rx's Medication Instructions Recorded conjugated estrogens 0.9 mg tablet 0.9 mg PO DAILY Post menopause #30 01/25/22 tabs amoxicillin 500 mg tablet 500 mg PO TID 10 days #30 tabs 04/08/22 benzonatate 100 mg capsule 100 mg PO TIDP PRN Cough #30 caps 04/08/22 methylprednisolone 4 mg tablets in 4 mg PO DIRECTED #21 tabs 04/08/22 a dose pack Allergies Allergy/AdvReac Type Severity Reaction Status Date / Time acetaminophen [From Lortab] Allergy Mild nauseated, Verified 04/08/22 08:29 shaking hydrocodone [From Lortab] Allergy Mild nauseated, Verified 04/08/22 08:29 shaking PFSH PFS Disclaimer: The information contained in this section may have been updated after the patient was seen, as this information can be updated by other users. 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 current occupational exposures/hazards: No caffeine: No ROS Obtained: Yes All systems reviewed & no additional complaints except as documented Constitutional Constitutional: Reports chills and Reports fever(s) Eyes Eyes: Denies eye discharge ENT Ears, Nose, Mouth, and Throat: Reports as per HPI Cardiovascular Cardiovascular: Denies chest pain Respiratory Respiratory: Denies chest congestion and Reports cough Gastrointestinal Gastrointestingal: Reports nausea; Denies abdominal pain, constipation, cramping, diarrhea or vomiting Musculoskeletal Musculoskeletal: Denies arthralgias Integumentary/Breasts Skin/Breast: Denies rash Neurologic Neurologic: Denies paresthesias Physical Exam General General appearance: alert and in no apparent distress Head Head exam: atraumatic, normocephalic and normal inspection Eye Eye exam: Present normal appearance, PERRL and EOMI ENT ENT e
[2022-04-08 08:25] LABS: UTC Strep Screen (Rapid) Negative (Negative)
[2022-04-08 08:26] LABS: UTC Influenza A Antigen Negative (Negative); UTC Influenza B Antigen Negative (Negative)
[2022-04-08 08:53] VITALS: BP 124/70; PULSE 73; RESP 20; TEMP 37.3; O2SAT 99
== END 2022-04-08 08:52 | disposition home or self-care (01) ==
PROVIDERS: Emergency Provider Nurse Practitioner Family; PCP Family Medicine
DX: J02.9 Acute pharyngitis, unspecified (principal); B34.9 Viral infection, unspecified
CPT/HCPCS: 87804; 87880; 99212; 99214; C9803; G0463; U0003; U0005

== ENCOUNTER 2022-05-19 15:45 | Emergency (ER) | payer BC, SELFPAY ==
[2022-05-19 15:55] VITALS: BMI 32.5
--- NOTE | 2022-05-19 15:55 | XR_ITS ---
FINAL REPORT CLINICAL HISTORY: Acute right hand pain with injury COMPARISON: None FINDINGS: RIGHT HAND: 3 views of the right hand were obtained. There is no acute fracture or dislocation. There is mild degenerative change. Soft tissues are unremarkable. IMPRESSION: No acute process. Reviewed, Interpreted and Dictated by Jed Rubio III, MD Transcribed by Nat Lara Authenticated and [facility]
[2022-05-19 16:20] VITALS: BP 111/71; PULSE 62; RESP 22; TEMP 36.8; O2SAT 97; BMI 31.8
--- NOTE | 2022-05-19 16:44 | EXP.UTC ---
Discharge Plan Disposition Patient Disposition: Home, Self-Care Condition: Good Prescriptions Prescriptions: No Action conjugated estrogens 0.9 mg tablet 0.9 mg PO DAILY Qty: 30 11RF Rx Instructions: cyclically metoprolol succinate 50 MG tablet extended release 24 hr 50 mg PO DAILY amoxicillin [amoxicillin] 500 mg tablet 500 mg PO TID 10 Days Qty: 30 0RF benzonatate [benzonatate] 100 mg capsule 100 mg PO TIDP PRN (Reason: Cough) Qty: 30 0RF methylprednisolone 4 mg Tablets,Dose Pack 4 mg PO DIRECTED Qty: 21 0RF Referrals Follow up/Referrals: Lina Tinajero MD [Primary Care Provider] - See instructions Activity Restrictions/Add. Instructions Additional Instructions/Restrictions: right hand wrapped in marco with cold pack applied. Will call with x-ray results. Clinical Impressions Clinical Impression: Fall with injury Qualifiers: Encounter type: initial encounter Qualified Code(s): W19.XXXA - Unspecified fall, initial encounter Hand contusion Qualifiers: Encounter type: initial encounter Laterality: right Qualified Code(s): S60.221A - Contusion of right hand, initial encounter Instructions Patient Instructions: DI for Hand Injury Discharge ED Provider: Britt Lpóez [facility] [place] General Stated complaint: AO 05/19@WM INJURED r wRIST Mode of Arrival: Ambulatory Source of Information: Patient Limitations: No Limitations Time Seen by Provider: 05/19/22 16:44 Description of Symptoms (Recalled from Triage Doc. by RN): PATIENT C/O INJURY TO RIGHT HAND AFTER FALLING IN [employer] LOT TODAY [employer] 1 HOUR [employer]OLLER [employer] HEENT Symptoms (Recalled from RN notes): No Resp Symptoms (Recalled from RN notes): No Skin Symptoms (Recalled from RN notes): No MS Symptoms (Recalled from RN notes): Yes Functional Status (Recalled from RN notes): WNL History of Present Illness Provider Complaint: Pt states that she fell in the [employer] parking lot about an hour prior to arriving to the [facility]. She states that her right hand was injured in the fall. Related Data Home Medications Medication Instructions Recorded Confirmed metoprolol succinate 50 mg 50 mg PO DAILY Hypertension 07/10/20 04/08/22 tablet,extended release 24 hr Previous Rx's Medication Instructions Recorded conjugated estrogens 0.9 mg tablet 0.9 mg PO DAILY Post menopause #30 01/25/22 tabs amoxicillin 500 mg tablet 500 mg PO TID 10 days #30 tabs 04/08/22 benzonatate 100 mg capsule 100 mg PO TIDP PRN Cough #30 caps 04/08/22 methylprednisolone 4 mg tablets in 4 mg PO DIRECTED #21 tabs 04/08/22 a dose pack Allergies Allergy/AdvReac Type Severity Reaction Status Date / Time acetaminophen [From Lortab] Allergy Mild nauseated, Verified 04/08/22 08:29 shaking hydrocodone [From Lortab] Allergy Mild nauseated, Verified 04/08/22 08:29 shaking Worker's Comp Is this a Worker's Comp case?: No [facility] Disclaimer: The information contained in this section may have been updated after the patient was seen, as this information can be updated by other users. 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
[2022-05-19 17:22] VITALS: BP 111/71; PULSE 62; RESP 22; TEMP 36.8; O2SAT 97
== END 2022-05-19 17:25 | disposition home or self-care (01) ==
PROVIDERS: Emergency Provider Nurse Practitioner Family; PCP Family Medicine
DX: S60.221A Contusion of right hand, initial encounter (principal); W18.39XA Other fall on same level, initial encounter
CPT/HCPCS: 73130; 99212; 99213; G0463

== ENCOUNTER 2022-09-27 17:25 | Emergency (ER) | payer BC, SELFPAY ==
[2022-09-27 17:25] VITALS: BP 181/115; PULSE 81; RESP 18; TEMP 36.8; O2SAT 96; BMI 32.5
--- NOTE | 2022-09-27 17:33 | EXP.UTC ---
Discharge Plan Disposition Patient Disposition: Home, Self-Care Condition: Good Prescriptions Prescriptions: New fluconazole [Diflucan] 100 mg tablet 100 mg PO DAILY 3 Days Qty: 3 0RF methylprednisolone 4 mg Tablets,Dose Pack 4 mg PO DIRECTED Qty: 21 0RF nystatin 100,000 unit/gram cream 1 applic topical BID Qty: 15 3RF No Action conjugated estrogens 0.9 mg tablet 0.9 mg PO DAILY Qty: 30 11RF Rx Instructions: cyclically metoprolol succinate 50 MG tablet extended release 24 hr 50 mg PO DAILY amoxicillin [amoxicillin] 500 mg tablet 500 mg PO TID 10 Days Qty: 30 0RF benzonatate [benzonatate] 100 mg capsule 100 mg PO TIDP PRN (Reason: Cough) Qty: 30 0RF methylprednisolone 4 mg Tablets,Dose Pack 4 mg PO DIRECTED Qty: 21 0RF Referrals Follow up/Referrals: Lina Tinajero MD [Primary Care Provider] - See instructions Activity Restrictions/Add. Instructions Additional Instructions/Restrictions: Don't start the oral steroids until tomorrow. Apply the nystatin to your underarms as directed. Wear loose fitting cotton clothing and try to let air circulate to your underarms as much as possible for the next few days. Follow up with your regular doctor. GO TO THE ER FOR ANY WORSENING SYMPTOMS OR CONCERNS Clinical Impressions Clinical Impression: Yeast infection of the skin, Contact dermatitis of face Instructions Patient Instructions: Fluconazole, Methylprednisolone Injection, DI for Yeast Infection-Skin, Nystatin Topical Discharge ED Provider: [place] [facility] [place] General Stated complaint: rash Time Seen by Provider: 09/27/22 17:33 History of Present Illness Provider Complaint: She states that she has a rash of both her axilla and on her face. She thinks that she has been exposed to poison [place]. Related Data Home Medications Medication Instructions Recorded Confirmed metoprolol succinate 50 mg 50 mg PO DAILY Hypertension 07/10/20 04/08/22 tablet,extended release 24 hr Previous Rx's Medication Instructions Recorded conjugated estrogens 0.9 mg tablet 0.9 mg PO DAILY Post menopause #30 01/25/22 tabs amoxicillin 500 mg tablet 500 mg PO TID 10 days #30 tabs 04/08/22 benzonatate 100 mg capsule 100 mg PO TIDP PRN Cough #30 caps 04/08/22 methylprednisolone 4 mg tablets in 4 mg PO DIRECTED #21 tabs 04/08/22 a dose pack fluconazole 100 mg tablet 100 mg PO DAILY 3 days #3 tabs 09/27/22 (Diflucan) methylprednisolone 4 mg tablets in 4 mg PO DIRECTED #21 tabs 09/27/22 a dose pack nystatin 100,000 unit/gram topical 1 applic topical BID #15 grams 09/27/22 cream Allergies Allergy/AdvReac Type Severity Reaction Status Date / Time acetaminophen [From Lortab] Allergy Mild nauseated, Verified 04/08/22 08:29 shaking hydrocodone [From Lortab] Allergy Mild nauseated, Verified 04/08/22 08:29 shaking PFSH PFSH Disclaimer: The information contained in this section may have been updated after the patient was seen, as this information can be updated by other users. 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
[2022-09-27 18:06] VITALS: BP 181/115; PULSE 81; RESP 18; TEMP 36.8; O2SAT 96
== END 2022-09-27 18:07 | disposition home or self-care (01) ==
PROVIDERS: Emergency Provider Nurse Practitioner Family; PCP Family Medicine
DX: L25.9 Unspecified contact dermatitis, unspecified cause (principal); B37.2 Candidiasis of skin and nail
CPT/HCPCS: 96372; 99212; 99214; G0463

== ENCOUNTER → 2023-01-28 10:50 | Outpatient (CLI) | payer BC, SELFPAY ==
--- NOTE | 2023-01-28 10:57 | MM_ITS ---
PROCEDURE INFORMATION: Exam: MG Bilateral Screening 3D Mammography Exam date and time: 01/28/2023 10:58 AM Age: 57 years old Clinical indication: Screening examination TECHNIQUE: Imaging protocol: Bilateral Screening tomosynthesis and 2D mammography including computer-aided detection (CAD) when performed. COMPARISON: 1. MG MM DIG SCREENING MAMM BI W/CAD 01/25/2022 3:05 PM 2. MG MM DIG SCREENING MAMM BI W/CAD 02/09/2021 7:58 AM FINDINGS: MAMMOGRAPHY: Breast composition: The breasts are almost entirely fatty. Mass: None. Architectural distortion: None. Calcifications: No suspicious calcifications. Asymmetric density: None. Skin thickening: None. Axillary adenopathy: None. IMPRESSION: No mammographic evidence of malignancy. Annual screening is recommended unless otherwise clinically indicated. ASSESSMENT: BI-RADS Category 1: Negative
== END ==
PROVIDERS: PCP Family Medicine; Visit Provider Obstetrics & Gynecology
DX: Z12.31 Encounter for screening mammogram for malignant neoplasm of breast (principal)
CPT/HCPCS: 77063; 77067

== ENCOUNTER 2024-03-05 07:48 | Outpatient (CLI) | payer BC, SELFPAY ==
--- NOTE | 2024-03-05 08:02 | MM_ITS ---
PROCEDURE INFORMATION: Exam: MG Bilateral Screening 3D Mammography Exam date and time: 03/05/2024 7:50 AM Age: 59 years old Clinical indication: Screening exam TECHNIQUE: Imaging protocol: Bilateral Screening tomosynthesis and 2D mammography including computer-aided detection (CAD) when performed. COMPARISON: 1. MG MM DIG SCREENING MAMM BI W/CAD 01/28/2023 10:58 AM 2. MG MM DIG SCREENING MAMM BI W/CAD 01/25/2022 3:05 PM FINDINGS: MAMMOGRAPHY: Breast composition: There are scattered areas of fibroglandular density. Mass: No suspicious masses. Architectural distortion: None. Calcifications: No suspicious calcifications. Asymmetric density: None. Skin thickening: None. Axillary adenopathy: None. IMPRESSION: No mammographic evidence of malignancy. Annual screening is recommended unless otherwise clinically indicated. ASSESSMENT: BI-RADS Category 1: Negative.
== END 2024-03-05 23:59 | disposition home or self-care (01) ==
LOC: RAD 07:49
PROVIDERS: PCP Family Medicine; Visit Provider Nurse Practitioner Obstetrics & Gynecology
DX: Z12.31 Encounter for screening mammogram for malignant neoplasm of breast (principal)
CPT/HCPCS: 77063; 77067

== ENCOUNTER 2024-03-21 14:59 | Emergency (ER) | payer BC, SELFPAY ==
[2024-03-21 15:00] VITALS: BP 144/80; PULSE 63; RESP 18; TEMP 37; O2SAT 96; BMI 32.5
[2024-03-21 15:04] VITALS: BP 144/80; PULSE 65; O2SAT 97
--- NOTE | 2024-03-21 15:19 | XR_ITS ---
PROCEDURE INFORMATION: Exam: XR Left Foot Exam date and time: 03/21/2024 3:23 PM Age: 59 years old Clinical indication: Injury or trauma; Fall; Sprain or strain; Foot; Left; Injury date: Today; Injury details: Fell on ice TECHNIQUE: Imaging protocol: Radiologic exam of the left foot. Views: 3 or more views. COMPARISON: CR XR FOOT LT MIN 3V 12/15/2021 11:57 AM FINDINGS: Bones/joints: There is no evidence of acute fracture.There is no evidence of malalignment or dislocation. Degenerative changes in the tarsal bones and tarsometatarsal joints Soft tissues: Normal. IMPRESSION: There is no evidence of acute fracture.There is no evidence of malalignment or dislocation.
--- NOTE | 2024-03-21 15:19 | CT_ITS ---
PROCEDURE INFORMATION: Exam: CT Left Lower Extremity, Knee Exam date and time: 03/21/2024 3:32 PM Age: 59 years old Clinical indication: Injury or trauma; Fall; Sprain or strain; Patella or knee; Left; Injury date: Today TECHNIQUE: Imaging protocol: CT of the left lower extremity without contrast was performed. Exam focused on the knee. Radiation optimization: All CT scans at this facility use at least one of these dose optimization techniques: automated exposure control; mA and/or kV adjustment per patient size (includes targeted exams where dose is matched to clinical indication); or iterative reconstruction. COMPARISON: CR [id number] KNEE-3 VIEWS-LT 06/27/2013 11:10 AM FINDINGS: Bones/joints: Mild suprapatellar joint effusion. There is no evidence of acute fracture.There is no evidence of malalignment or dislocation. Well-corticated avulsion fracture off the lateral aspect of the patella ( series 3 image 46 and 45.). Soft tissues: Normal. IMPRESSION: 1. Mild suprapatellar joint effusion. 2. There is no evidence of acute fracture.There is no evidence of malalignment or dislocation. . 3. Well-corticated avulsion fracture off the lateral aspect of the patella ( series 3 image 46 and 45.).
--- NOTE | 2024-03-21 15:23 | ED_ITS ---
<Statement entered by Jessa Salazar MD - 03/21/24 23:09> I was consulted by the OMAIRA, and we discussed the complexity of the problems being addressed. I approved the treatment and management plan for this patient's care in the emergency department, thus performing a substantive portion of the medical decision making. Jessa Salazar MD, LILY, FACEP Discharge Plan Disposition Patient Disposition: Home, Self-Care Condition: Good Prescriptions Prescriptions: No Action metoprolol succinate 100 mg tablet extended release 24 hr 100 mg PO DAILY meclizine 12.5 mg tablet 12.5 mg PO DAILY Patient Comments: TAKE 1 TABLET BY MOUTH THREE TIMES DAILY NEEDED hydrochlorothiazide 12.5 mg tablet 12.5 mg PO DAILY Patient Comments: TAKE 1 TABLET BY MOUTH ONCE DAILY NEEDED Referrals Follow up/Referrals: Lina Tinajero MD [Primary Care Provider] - See instructions Gideon Romero DO [Staff Physician] - See instructions Activity Restrictions/Add. Instructions Additional Instructions/Restrictions: Please follow-up with Dr. Romero who is Ortho as soon as you can. Use knee immobilizer and crutches for injury. You can weight-bear as tolerated. Use Tylenol and ibuprofen for pain relief. Also apply ice as tolerated. If any worsening problems or concerns please return to the ED. Clinical Impressions Clinical Impression: Avulsion fracture, Acute knee pain Instructions Patient Instructions: DI for Patella Fracture Print Language Print Language: Citizen Of [place] Discharge ED Provider: Jessa Salazar General Adult HPI General Chief complaint: Extremity Injury, Lower Stated complaint: AO01/11@1415 LT knee and toe inj Time Seen by Provider: 03/21/24 15:15 Mode of Arrival: Wheelchair Source of Information: Patient and Medical Record Limitations: No Limitations Description of Symptoms (Recalled from ER Triage Doc. by RN): Pt presents to ER after a fall @ 1400 today. States she was bringing in grocercies when she fell by her car on the snow/ice. Her LLE went back and to the left. States she could feel tearing and ripping inside . She c/o pain to L knee and left great toe. She was able to get inside her home and then elevated her LLE and placed ice to it. Rates pain 3/10 when elevated & resting but the pain significantly increased with movement and she cannot bear weight. History of Present Illness HPI narrative: This is a 59-year-old female who presents to the ED for a fall at 2:00 pm today. She was bringing in groceries and landed on her side with her left leg back behind her. She says her left knee hurts laterally and right at the patella. She says it feels like [id number]. She does have obvious swelling. She is able to put pressure on it but only for a few seconds. She also hurt her left great toe. She denies any left hip or back pain. She does not want Lortab because it makes her nauseated. Related Data Home Medications ?Medication ?Instructions ?Recorded ?Confirmed metoprolol succinate 100 mg 100 mg PO DAILY 01/28/23 02/03/24 tablet,extended release 24 hr hydrochlorothiazide 12.5 mg tablet 12.5 mg PO DAILY 02/03/24 02/03/24 meclizine 12.5 mg tablet 12.5 mg PO DAILY 02/03/24 02/03/24 Allergies Allergy/AdvReac Type Severity Reaction Status Date / Time acetaminophen (From Lortab) Allergy Mild nauseated, Verified 02/03/24 08:30 shaking hydrocodone (From Lortab) Allergy Mild nauseated, Verified 02/03/24 08:30 shaking PFSH PFSH Disclaimer: The information contained in this section may have been updated after the patient was seen, as this information can be updated by other users. 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 current occupational exposures/hazards: No caffeine: No Have you lived/traveled outside US in past 30 days?: No Contact w/someone who lives/traveled outside US past 30 days?: No Exposure to someone with infectious disease in past 14 days?: No Do you have a fever (greater than 100.4 F or 38 C)?: No Have you tested positive for COVID-19: No Exposed to someone with COVID-19 in past 14 days?: No Do you have a sore throat?: No Do you have a cough?: No Do you have any weakness?: No Do you have any diarrhea?: No Are you experiencing any unusual bleeding?: No Do you have any muscle aches/pain?: No Do you have any abdominal pain?: No Are you experiencing loss of taste or smell?: No Other Medical History Have you received the Flu Vaccine for this season: No Have you received the Pneumonia Vaccine: No ROS Obtained: Yes Systems reviewed as appropriate & no additional complaints except as documented Constitutional Constitutional: Reports as per HPI Physical Exam General General appearance: alert and in distress Comment: Left knee pain Head Head exam: atraumatic and normocephalic Eye Eye exam: Present normal appearance, PERRL and EOMI ENT ENT exam: Present mucous membranes moist Neck Neck exam: Present normal inspection, full ROM and trachea midline Respiratory Respiratory exam: Present normal lung sounds bilaterally Cardiovascular Cardiovascular exam: Present regular rate, normal rhythm, normal heart sounds, +S1 and +S2 Extremities Exam Extremities exam: Present tenderness, normal capillary refill, edema and joint swelling Neurological Exam Neurological exam: Present alert and oriented X3 Skin Skin exam: Present warm, dry and intact Medical Decision Making Medical Records Screening: Per USPSTF and CDC recommendations, given the prevalence of disease in our region, it is our hospital?s policy to screen for HIV and viral Hepatitis for all patients aged 18 and over and those with ongoing risk factors. Kiran Inquiry Pt receiving controlled substance: No Kiran was queried for this patient: No Vital Signs: 03/21/24 15:00 03/21/24 15:04 03/21/24 16:00 Temperature 98.6 F Temperature Source Oral Pulse Rate 65 58 L Pulse Rate [Right] 63 Respiratory Rate 18 Blood Pressure 144/80 H 109/64 L Blood Pressure [Right Arm] 144/80 H Blood Pressure Mean [Right Arm] 101 Blood Pressure Source [Right Arm] Automatic Cuff 02 Sat by Pulse Oximetry 96 97 99 Oxygen Delivery Method Room Air Room Air 03/21/24 16:30 Temperature Temperature Source Pulse Rate 56 L Pulse Rate [Right] Respiratory Rate Blood Pressure 108/57 L Blood Pressure [Right Arm] Blood Pressure Mean [Right Arm] Blood Pressure Source [Right Arm] 02 Sat by Pulse Oximetry 97 Oxygen Delivery Method Lab Data Lab results reviewed: Yes I reviewed the patient's lab results. Orders (Tests/Meds): ED MEDICATIONS Discontinued Medications Generic Name Dose Route Start Last Admin Trade Name Agq PRN Reason Stop Dose Admin Ketorolac Tromethamine 60 mg 03/21/24 15:19 03/21/24 15:29 Ketorolac 60mg/2ml Vial IM 03/21/24 15:20 60 mg ONCE ONE Administration ORDERS Category Date Time Status CT knee LT wo con Stat Cat Scan 03/21/24 15:19 Completed XR foot LT min 3V Stat Exams 03/21/24 15:19 Completed Medical Decision Narrative: Insert review patient is a 9-year-old female presenting to the emergency department for evaluation of a fall with left knee and left great toe pain. Patient is[hemodynamically stable and nontoxic-appearing upon arrival, afebrile. Differential diagnosis includes fractured knee versus internal derangement of her knee, sprain or strain of knee among others. Workup will be conducted with CT scan of left knee and plain film of left foot. Initial inventions include Toradol for pain control. Initial workup includes films and pain meds. Imaging informally interpreted by me and remarkable for no acute changes. Formal imaging read remarkable for avulsion fracture of patella. Upon repeat evaluation patient's pain is improved. Patient will be placed in an immobilizer and given crutches. She will follow-up with Dr. Romero who is Ortho. Any other problems or concerns she will return to the ED Critical Care Critical Care Time Critical Care Time: No
[2024-03-21] MEDS: KETOROLAC 60MG/2ML VIAL 60 MG IM (15:29)
--- NOTE | 2024-03-21 15:36 | PC.NURSE ---
PT RETURNED FROM RADIOLOGY
[2024-03-21 16:00] VITALS: BP 109/64; PULSE 58; O2SAT 99
[2024-03-21 16:30] VITALS: BP 108/57; PULSE 56; O2SAT 97
[2024-03-21 17:10] VITALS: BP 110/60; PULSE 58; RESP 18; TEMP 37; O2SAT 98
== END 2024-03-21 17:14 | disposition home or self-care (01) ==
PROVIDERS: Emergency Provider Student in an Organized Health Care Education/Training Program; PCP Family Medicine
DX: T14.8XXA Other injury of unspecified body region, initial encounter (principal); M25.562 Pain in left knee; M79.675 Pain in left toe(s); W00.0XXA Fall on same level due to ice and snow, initial encounter; Y93.89 Activity, other specified; Y92.89 Other specified places as the place of occurrence of the external cause
CPT/HCPCS: 73630; 73700; 96372; 99284; J1885

== ENCOUNTER 2024-04-28 09:13 | Outpatient (CLI) | payer BC, SELFPAY ==
--- NOTE | 2024-04-28 09:16 | XR_ITS ---
FINAL REPORT CLINICAL HISTORY: lt knee pain fracture Mar 21, no surgery FINDINGS: AP, lateral and oblique views of the left knee were obtained. There is no prior exam for comparison. There is no acute fracture or dislocation. There is mild lateral patellar subluxation. There is degenerative joint disease. There is no joint effusion or other soft tissue abnormality. IMPRESSION: No acute osseous abnormality of the left knee. Degenerative joint disease. Reviewed, Interpreted and Dictated by Susan Buckley MD Transcribed by Alice Stoner Authenticated and [facility]
== END 2024-04-28 23:59 | disposition home or self-care (01) ==
LOC: RAD 09:14
PROVIDERS: PCP Family Medicine; Visit Provider Orthopaedic Surgery
DX: M25.562 Pain in left knee (principal)
CPT/HCPCS: 73562

== ENCOUNTER 2024-06-25 17:36 | Emergency (ER) | payer BC, SELFPAY ==
[2024-06-25 17:48] VITALS: BP 152/77; PULSE 56; RESP 18; TEMP 36.8; O2SAT 100; BMI 32.3
[2024-06-25] MEDS: LACTATED RINGERS 1000ML 1,000 ML 999 ML IV (18:12)
[2024-06-25] MEDS: ONDANSETRON 4MG/2ML VIAL 4 MG IV (18:12)
--- NOTE | 2024-06-25 18:13 | ECG_ITS ---
APPROVED REPORT Exam: Resting ECG HR:59 bpm ECG Measurements Heart Rate 59 AXES NH 238 P 51 QRSd 101 QRS 25 QT 430 T 42 QTc 428 Conclusion SINUS BRADYCARDIA WITH FIRST DEGREE AV BLOCK LOW QRS VOLTAGE IN PRECORDIAL LEADS [QRS DEFLECTION < 1.0 mV IN CHEST LEADS] POSSIBLE ANTERIOR MYOCARDIAL INFARCTION , PROBABLY OLD [30 ms Q WAVE IN V3/V4, OR R < 0.2 mV IN V4] No STEMI Electronically signed by : RAUL RAMACHANDRAN, 06/26/2024 23:32:57
[2024-06-25 18:21] LABS: Basophils # 0.1 K/mm3 (0-0.2); Basophils % 0.7 % (0.1-2.0); Eosinophils # 0.3 K/mm3 (0.0-0.4); Eosinophils % 3.4 % (0.1-12.0); Hematocrit 39.5 % (37.0-47.0); Hemoglobin 13.6 g/dL (12.2-16.2); Lymphocytes % 40.6 % (10-50); Mean Corpuscular HGB Conc 34.4 g/dL (31.8-35.4); Mean Corpuscular Hemoglobin 31.1 pg (27.0-31.2); Mean Corpuscular Volume 90.4 fl (81-99); Mean Platelet Volume 11.9 fl (7.4-10.4); Monocytes # 0.8 K/mm3 (0.1-1.0); Monocytes % 10.2 % (1.7-9.3); Neutrophils # 3.3 K/mm3 (1.8-7.8); Nucleated Red Blood Cells # 0 10^3/uL; Nucleated Red Blood Cells % 0 %; Platelet Count 197 K/mm3 (142-424); Red Blood Count 4.37 M/mm3 (4.20-5.40); Red Cell Distribution Width 11.6 % (11.5-17.5); Red Cell Distribution Width-SD 38.3 fL; White Blood Count 7.4 K/mm3 (4.8-10.8)
[2024-06-25 18:30] VITALS: BP 131/68; PULSE 54; O2SAT 97
[2024-06-25 18:31] LABS: Alanine Aminotransferase 31 U/L (12-78); Albumin Level 4.2 g/dl (3.5-5.0); Albumin/Globulin Ratio 1.1 (1.1-1.8); Alkaline Phosphatase 74 U/L (38-126); Anion Gap 18.1 mEq/L (5-15); Aspartate Amino Transferase 35 U/L (14-36); Bilirubin,Total 0.9 mg/dl (0.2-1.3); Blood Urea Nitrogen 12 mg/dl (7-17); Calcium 9.3 mg/dl (8.4-10.2); Carbon Dioxide 22 mmol/L (22.0-30.0); Chloride 100 mmol/L (98-107); Creatinine Clearance Estimated 149 mL/min (50-200); Estimated Glomerular Filt Rate 86 ml/min (>60); GFR (African American) 104 ML/MIN (>60); Globulin 3.7 g/dL (1.3-3.2); Glucose 148 mg/dl (74-100); Potassium 4.1 mmoL/L (3.5-5.1); Sodium 136 mmol/L (136-145); Total Protein,Serum 7.9 g/dl (6.3-8.2)
--- NOTE | 2024-06-25 18:31 | CT_ITS ---
PROCEDURE INFORMATION: Exam: CTA Head With Contrast, Arteriography Exam date and time: 06/25/2024 7:17 PM Age: 59 years old Clinical indication: Other: Vertigo, pulsatile tinnitus TECHNIQUE: Imaging protocol: Computed tomographic angiography of the head with contrast. Exam focused on the arteries. 3D rendering (Not supervised by radiologist): MIP and/or 3D reconstructed images were created by the technologist. Radiation optimization: All CT scans at this facility use at least one of these dose optimization techniques: automated exposure control; mA and/or kV adjustment per patient size (includes targeted exams where dose is matched to clinical indication); or iterative reconstruction. Contrast material: ISO 370; Contrast volume: 80 ml; Contrast route: INTRAVENOUS (IV); COMPARISON: CT HEAD/BRAIN WO CON 06/25/2024 7:15 PM FINDINGS: ANTERIOR CIRCULATION: Right internal carotid artery: Intracranial segment is patent with no significant stenosis. No aneurysm. Right middle cerebral artery: No occlusion or significant stenosis. No aneurysm. Right anterior cerebral artery: No occlusion or significant stenosis. No aneurysm. Left internal carotid artery: Intracranial segment is patent with no significant stenosis. No aneurysm. Left middle cerebral artery: No occlusion or significant stenosis. No aneurysm. Left anterior cerebral artery: No occlusion or significant stenosis. No aneurysm. POSTERIOR CIRCULATION: Right vertebral artery: No occlusion or significant stenosis. No aneurysm. Left vertebral artery: No occlusion or significant stenosis. No aneurysm. Basilar artery: No occlusion or significant stenosis. No aneurysm. Right posterior cerebral artery: No occlusion or significant stenosis. No aneurysm. Left posterior cerebral artery: No occlusion or significant stenosis. No aneurysm. Brain: No definite mass, mass effect, or midline shift. Cerebral ventricles: No ventriculomegaly. Bones/joints: Unremarkable. No acute fracture. Soft tissues: Unremarkable. IMPRESSION: No large vessel stenosis or occlusion.
--- NOTE | 2024-06-25 18:31 | CT_ITS ---
PROCEDURE INFORMATION: Exam: CTA Neck With Contrast Exam date and time: 06/25/2024 7:17 PM Age: 59 years old Clinical indication: Other: Vertigo, pulsatile tinnitus TECHNIQUE: Imaging protocol: Computed tomographic angiography of the neck with contrast. Exam focused on the cervical segments of the vasculature. 3D rendering (Not supervised by radiologist): MIP and/or 3D reconstructed images were created by the technologist. Radiation optimization: All CT scans at this facility use at least one of these dose optimization techniques: automated exposure control; mA and/or kV adjustment per patient size (includes targeted exams where dose is matched to clinical indication); or iterative reconstruction. Contrast material: ISO 370; Contrast volume: 80 ml; Contrast route: INTRAVENOUS (IV); COMPARISON: CT HEAD/BRAIN WO CON 06/25/2024 7:15 PM FINDINGS: Right common carotid artery: No stenosis. No dissection or occlusion. Right internal carotid artery: No stenosis of the extracranial segment. No dissection or occlusion. Right external carotid artery: No occlusion or stenosis of the origin. Left common carotid artery: No stenosis. No dissection or occlusion. Left internal carotid artery: No stenosis of the extracranial segment. No dissection or occlusion. Left external carotid artery: No occlusion or stenosis of the origin. Right vertebral artery: No stenosis. No dissection or occlusion. Left vertebral artery: No stenosis. No dissection or occlusion. Soft tissues: Normal. No significant soft tissue swelling. Bones/joints: No acute fracture. IMPRESSION: No hemodynamically significant stenosis or occlusion. REFERENCES: NASCET CRITERIA. The degree of stenosis in the cervical segment of the internal carotid artery is based on NASCET criteria. Normal is no stenosis. Mild is less than 50% stenosis. Moderate is 50-69% stenosis. Severe is 70% to 99% stenosis. Total occlusion is no detectable patent lumen.
--- NOTE | 2024-06-25 18:31 | CT_ITS ---
PROCEDURE INFORMATION: Exam: CT Head Without Contrast Exam date and time: 06/25/2024 7:15 PM Age: 59 years old Clinical indication: Other: Vertigo; Additional info: Vertigo, pulsatile tinnitus TECHNIQUE: Imaging protocol: Computed tomography of the head without contrast. Radiation optimization: All CT scans at this facility use at least one of these dose optimization techniques: automated exposure control; mA and/or kV adjustment per patient size (includes targeted exams where dose is matched to clinical indication); or iterative reconstruction. COMPARISON: CT SINUS WO CON 03/05/2022 10:42 AM FINDINGS: Brain: Normal. No hemorrhage. Unremarkable white matter. No mass effect. Cerebral ventricles: No ventriculomegaly. Paranasal sinuses: Visualized sinuses are unremarkable. No fluid levels. Mastoid air cells: Visualized mastoid air cells are well aerated. Bones: Unremarkable. No acute fracture. Soft tissues: Unremarkable. IMPRESSION: No acute intracranial abnormality.
[2024-06-25] MEDS: MECLIZINE 25MG TABLET 25 MG PO (18:37)
[2024-06-25 18:40] LABS: NT Pro Brain Natriuretic Pep. 71.1 pg/mL (0-125)
[2024-06-25 18:43] LABS: Troponin I < 0.01 ng/ml (0.00-0.034)
[2024-06-25] MEDS: 0.9 % SODIUM CHLORIDE 50 ML VIAL IV (19:20)
[2024-06-25] MEDS: SODIUM CHLORIDE 0.9% 10ML SYR (RAD ONLY) 10 ML IV (19:20)
[2024-06-25] MEDS: IOPAMIDOL-370 (76%);100ML BOTTLE 80 ML IV (19:20)
[2024-06-25] MEDS: predniSONE 20MG TAB 40 MG PO (20:34)
[2024-06-25 20:36] VITALS: BP 96/62; PULSE 60; RESP 14; TEMP 37.1; O2SAT 100
[2024-06-25 20:45] VITALS: BP 135/76; PULSE 58; RESP 18; TEMP 36.6; O2SAT 96
--- NOTE | 2024-06-25 20:53 | HMH.EDGENADL ---
Discharge Plan Disposition Patient Disposition: Home, Self-Care Condition: Good Prescriptions Prescriptions: New meclizine 25 mg tablet 25 mg PO QID PRN (Reason: dizziness) Qty: 30 0RF fluticasone propionate [Flonase Allergy Relief] 50 mcg/actuation spray,suspension 1 spray intranasal BID Qty: 16 0RF Rx Instructions: administer into each nostril cetirizine [Zyrtec] 10 mg tablet 10 mg PO DAILY Qty: 30 0RF prednisone 20 mg tablet 40 mg PO DAILY 4 Days Qty: 8 0RF No Action metoprolol succinate 100 mg tablet extended release 24 hr 100 mg PO DAILY meclizine 12.5 mg tablet 12.5 mg PO DAILY Patient Comments: TAKE 1 TABLET BY MOUTH THREE TIMES DAILY NEEDED hydrochlorothiazide 12.5 mg tablet 12.5 mg PO DAILY Patient Comments: TAKE 1 TABLET BY MOUTH ONCE DAILY NEEDED Referrals Follow up/Referrals: Daphney Rawls APRN [Nurse Practitioner] - See instructions Provider,Referral, [Primary Care Provider] - See instructions Activity Restrictions/Add. Instructions Additional Instructions/Restrictions: You were evaluated in the emergency department today. 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 Follow-up closely with your primary care provider as well as with ENT. Your PCP can help refer you to physical therapy for treatment as well. Return to the emergency department for new or worsening symptoms. Clinical Impressions Clinical Impression: Vertigo Stand Alone Forms Stand Alone Forms: Work/School Release Instructions Patient Instructions: DI for Vertigo, DI for Benign Paroxysmal Positional Vertigo Print Language Print Language: Belarusian Discharge ED Provider: Kayla Jaime General Adult HPI General Chief complaint: Nausea/Vomiting/Diarrhea Stated complaint: vomiting Time Seen by Provider: 06/25/24 17:57 Mode of Arrival: Wheelchair Source of Information: Patient Description of Symptoms (Recalled from ER Triage Doc. by RN): Pt presents for evaluation of nausea/vomiting, and dizziness that started at 5pm. Pt states she has been seen by her PCP, and has an appointment for ENT but is not going to be able to wait that long. History of Present Illness HPI narrative: This patient is a 59-year-old female with history of vertigo presenting to the emergency department for evaluation with concern for nausea, vomiting, and dizziness that started acutely at 5 PM. She describes it as if the room is spinning. She took her home medication that she was given for this by her PCP, but it did not help. She states that she is been seeing her PCP for this for quite some time now and has also scheduled an appointment for ENT, but she cannot wait that long because symptoms are so severe. She has had intermittent episodes for quite some time now. She has noticed she intermittently hears whooshing in her left ear. She denies any vision changes, numbness, ting, unilateral weakness, chest pain, shortness of breath, or other concerns Related Data Home Medications ?Medication ?Instructions ?Recorded ?Confirmed metoprolol succinate 100 mg 100 mg PO DAILY 01/28/23 06/16/24 tablet,extended release 24 hr hydrochlorothiazide 12.5 mg tablet 12.5 mg PO DAILY 02/03/24 06/16/24 meclizine 12.5 mg tablet 12.5 mg PO DAILY 02/03/24 06/16/24 Previous Rx's ?Medication ?Instructions ?Recorded cetirizine 10 mg tablet (Zyrtec) 10 mg PO DAILY #30 tabs 06/25/24 fluticasone propionate 50 1 spray intranasal BID #16 grams 06/25/24 mcg/actuation nasal spray,suspension (Flonase Allergy Relief) meclizine 25 mg tablet 25 mg PO QID PRN dizziness #30 tabs 06/25/24 prednisone 20 mg tablet 40 mg (2 x 20 mg) PO DAILY 4 days 06/25/24 #8 tabs Allergies Allergy/AdvReac Type Severity Reaction Status Date / Time acetaminophen (From Lortab) Allergy Mild nauseated, Verified 06/16/24 09:09 shaking hydrocodone (From Lortab) Allergy Mild nauseated, Verified 06/16/24 09:09 shaking [facility] Disclaimer: The information contained in this section may have been updated after the patient was seen, as this information can be updated by other users. 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 current occupational exposures/hazards: No caffeine: No Have you lived/traveled outside US in past 30 days?: No Contact w/someone who lives/traveled outside US past 30 days?: No Exposure to someone with infectious disease in past 14 days?: No Do you have a fever (greater than 100.4 F or 38 C)?: No Have you tested positive for COVID-19: No Exposed to someone with COVID-19 in past 14 days?: No Do you have a sore throat?: No Do you have a cough?: No Do you have any weakness?: No Do you have any diarrhea?: No Are you experiencing any unusual bleeding?: No Do you have any muscle aches/pain?: No Do you have any abdominal pain?: No Are you experiencing loss of taste or smell?: No Other Medical History Have you received the Flu Vaccine for this season: No Have you received the Pneumonia Vaccine: No ROS Obtained: Yes All systems reviewed & no additional complaints except as documented Physical Exam General General appearance: alert and in no apparent distress Head Head exam: atraumatic and normocephalic Eye Eye exam: Present PERRL, EOMI and nystagmus (Unidirectional horizontal beating nystagmus) ENT ENT exam: Present normal exam, normal oropharynx, mucous membranes moist and normal external ear exam Neck Neck exam: Present normal inspection, full ROM and trachea midline; Absent tenderness Chest Chest inspection: Present normal inspection and symmetric chest wall rise; Absent tenderness Respiratory Respiratory exam: Present normal lung sounds bilaterally; Absent respiratory distress, wheezes, stridor or accessory muscle use Cardiovascular Cardiovascular exam: Present regular rate and normal rhythm Abdominal Exam Abdominal exam: Present soft; Absent distention, tenderness or guarding Extremities Exam Extremities exam: Present normal inspection, full ROM and normal capillary refill; Absent tenderness or edema Back Exam Back exam: Present normal inspection and full ROM; Absent tenderness Neurological Exam Neurological exam: Present alert, oriented X3, CN II-XII intact and normal gait; Absent motor sensory deficit Psychiatric Psychiatric exam: Present normal affect and normal mood Skin Skin exam: Present warm and dry Medical Decision Making Medical Records Medical records reviewed: Yes I reviewed the patient's medical records. Screening: Per USPSTF and CDC recommendations, given the prevalence of disease in our region, it is our hospital?s policy to screen for HIV and viral Hepatitis for all patients aged 18 and over and those with ongoing risk factors. Kiran Inquiry Pt receiving controlled substance: No Vital Signs: 06/25/24 17:48 06/25/24 18:30 06/25/24 20:36 Temperature 98.3 F 98.8 F Temperature Source Oral Oral Pulse Rate 54 L 60 Pulse Rate [Right] 56 L Respiratory Rate 18 14 Blood Pressure 131/68 96/62 L Blood Pressure [Right Arm] 152/77 H Blood Pressure Mean [Right Arm] 102 Blood Pressure Source Automatic Cuff Blood Pressure Source [Right Arm] Automatic Cuff Blood Pressure Position Sitting Blood Pressure Position [Right Arm] Sitting 02 Sat by Pulse Oximetry 100 97 Oxygen Delivery Method Room Air Room Air Room Air 06/25/24 20:45 Temperature 98 F Temperature Source Pulse Rate 58 L Pulse Rate [Right] Respiratory Rate 18 Blood Pressure 135/76 Blood Pressure [Right Arm] Blood Pressure Mean [Right Arm] Blood Pressure Source Blood Pressure Source [Right Arm] Blood Pressure Position Blood Pressure Position [Right Arm] 02 Sat by Pulse Oximetry Oxygen Delivery Method Room Air Lab Data Lab results reviewed: Yes I reviewed the patient's lab results. Lab Results 06/25/24 18:10: WBC 7.4, RBC 4.37, Hgb 13.6, Hct 39.5, MCV 90.4, MCH 31.1, MCHC 34.4, RDW 11.6, Plt Count 197, MPV 11.9 H, Neut % (Auto) 45.0, Lymph % (Auto) 40.6, [place] % (Auto) 10.2 H, Eos % (Auto) 3.4, Baso % (Auto) 0.7, Neut # (Auto) 3.3, Lymph # (Auto) 3.0, [place] # (Auto) 0.8, Eos # (Auto) 0.3, Baso # (Auto) 0.1, Sodium 136, Potassium 4.1, Chloride 100, Carbon Dioxide 22, Anion Gap 18.1 H, BUN 12, Creatinine 0.70, Estimated Creat Clear 149, Estimated GFR 86, Est GFR ( Amer) 104, Glucose 148 H, Calcium 9.3, Total Bilirubin 0.9, AST 35, ALT 31, Alkaline Phosphatase 74, Troponin I < 0.01, NT-Pro-B Natriuret Pep 71.1, Total Protein 7.9, Albumin 4.2, Globulin 3.7 H, Albumin/Globulin Ratio 1.1 06/25/24 18:10 06/25/24 18:10 Orders (Tests/Meds): ED MEDICATIONS Discontinued Medications Generic Name Dose Route Start Last Admin Trade Name Freq PRN Reason Stop Dose Admin Lactated Ringer's 1,000 mls @ 999 mls/hr 06/25/24 18:07 06/25/24 18:12 Lactated Ringer's 1000 Ml Bag IV 06/25/24 19:07 999 mls/hr .Q1H1M ONE Administration Iopamidol 80 ml 06/25/24 19:20 06/25/24 19:20 Iopamidol-370 (76%);100ml Bottle IV 06/25/24 19:21 80 ml ONCE ONE Administration Meclizine HCl 25 mg 06/25/24 18:31 06/25/24 18:37 Meclizine 25mg Tablet PO 06/25/24 18:32 25 mg ONCE ONE Administration Ondansetron HCl 4 mg 06/25/24 18:07 06/25/24 18:12 Ondansetron 4mg/2ml Vial IV 06/25/24 18:08 4 mg ONCE ONE Administration Prednisone 40 mg 06/25/24 20:25 06/25/24 20:34 Prednisone 20mg Tab PO 06/25/24 20:26 40 mg ONCE ONE Administration Sodium Chloride 10 ml 06/25/24 18:06 Sodium Chloride 0.9% 10ml Flush Syringe IV 07/25/24 18:05 NEEDED PRN Maintain IV Site Sodium Chloride 10 ml 06/25/24 19:20 06/25/24 19:20 Sodium Chloride 0.9% 10ml Syr (Rad Only) IV 07/25/24 19:19 10 ml NEEDED PRN Administration Maintain IV Site Sodium Chloride 50 ml 06/25/24 19:20 06/25/24 19:20 0.9 % Sodium Chloride 50 Ml Vial IV 06/25/24 19:21 50 ml ONCE ONE Administration ORDERS Category Date Time Status CT angio head Stat Cat Scan 06/25/24 18:[address] angio neck Stat Cat Scan 06/25/24 18:[address] head/brain wo con Stat Cat Scan 06/25/24 18:31 Completed BNP [NT Pro Brain Natriuretic Pep.] Stat Lab 06/25/24 18:10 Completed Complete Blood Count Auto Diff Stat Lab 06/25/24 18:10 Completed Comprehensive Metabolic Panel Stat Lab 06/25/24 18:10 Completed Troponin I Stat Lab 06/25/24 18:10 Completed ECG Data Tracing #1: I reviewed this ECG and interpreted as documented below: Sinus bradycardia with a ventricular to 59 bpm. No acute STEMI. First-degree AV block with GA interval 238 ms. Normal QTc. ECG initial impression date: 06/25/24 ECG initial impression time: 18:22 Medical Decision Narrative: In summary, this patient is a 59-year-old female presenting to the Emergency Department for evaluation of vertigo, nausea, vomiting. Differential diagnoses considered include but are not limited to []. Ruling out the most morbid conditions drove assessment. On exam, the patient is well-appearing, sitting upright in no acute distress. She was actively vomiting upon arrival. She has unidirectional horizontal nystagmus that is fatigable, which is reassuring against central causes of vertigo. She also has no neurologic deficits noted on clinical exam. Workup included CBC, CMP, CT head, CT angiogram of the head and neck. I independently interpreted CT scans prior to the radiologist read and noted no large vessel occlusion, no dissection, no intracranial hemorrhage or mass. Please see their read for final interpretation. Labs were obtained that demonstrated reassuring CBC with no significant leukocytosis or anemia, chemistry is reassuring. On reassessment, patient had good improvement after administration of closing. She no longer feels dizzy. I feel she likely has peripheral cause of vertigo and is appropriate for discharge home with prescriptions for meclizine, Flonase, Zyrtec, and short course of steroids to help with any possible eustachian tube dysfunction. She was given instructions for close follow-up with ENT as well as PCP. Strict return precautions were given. Critical Care Critical Care Time Critical Care Time: No
== END 2024-06-25 20:42 | disposition home or self-care (01) ==
PROVIDERS: Emergency Provider Emergency Medicine
DX: R11.2 Nausea with vomiting, unspecified (principal); R42 Dizziness and giddiness; R00.1 Bradycardia, unspecified
CPT/HCPCS: 70450; 70496; 70498; 80053; 83880; 84484; 85025; 93005; 96361; 96374; 99285; J2405; J7120; Q9967

== ENCOUNTER 2024-10-10 08:40 | Outpatient (CLI) | payer BC, SELFPAY ==
--- OUTSIDE RECORDS SUMMARY | 2024-06-02 11:00 | XMS_ITS ---
Author Organization [facility] Address [facility] [address] [place] [phone] Care Team Providers Care Loaf Counter Name Role Phone Jessa Tinajero Primary Care Provider Tommy Leiva Unavailable [phone] Allergies No Known Allergies Results Component Value [...] Problem Status W/U Status Risk Notes Problem Tinnitus of both ears (H93.13) Active confirmed Vital Signs Blood pressure systolic 120 mm Hg 06/03/19 25 Blood pressure diastolic 82 mm Hg 025 Heart Rate 74 /min 06/02/2024 Height 72 in 06/02/2024 Weight 241.2 lbs 06/02/2024 BMI 32.71 kg/m2 06/02/2024 Encounters Encounter Location Date Provider Diagnosis [facility] [address] [facility] [address] [place] [phone] 06/02/2024 Tommy Leiva Vertigo R42 and Tinnitus [...] tests, Reas on: Provider Name:Jessa Lagunas er, 10/16/2024 09:30:00 AM, 1210 [facility] 36 [facility], [address], [place], [phone], Progress Notes * HAWA BLANCO ADOB:1965 ([age] yo F)Acc No.[id number]:06/02/2024 Progress Notes Patient: Jessa VALIENTE HAWA Ruano Provider: Tommy Leiva M.D. :1965 A ge:59 Y S ex:Female Date:06/02/2024 Address:[address] [address] [address], [id number] Pcp:Jessa Tinajero Subjective: * Chief Complaints: * [...] Diagno stic Procedure: [place] 02[place], [facility] ER-congestion 03/03/2015, [facility] Angina 03/19-12/2016. * Family History: F ather: [...] Atwood 06/08/2024 10:5 7:39 AM > order [id number]; anticipated determination date is 06/10/2024Yoselin Atwodo 06/10/2024 11:53:09 AM >[facility] 07/04/2024 09:50:55 PM > reviewed with [...] * Images: Billing Information: * Visit Code: 44007 Office Visit, Est Pt., Level 4. * Procedure Codes: 3074F SYST BP LT 130 MM HG. 3079F DIAST BP 80-89 MM HG. * Electronic signature of Tommy Leiva MD on 10/10/2024 at 08:44 AM EDT Sign off status: Pending * Provider: Tommy Leiva M.D. Date: 0 06/02/2024 Generated for Printi ng/Andrezg/eTransmitting on: 0 10/10/2024 08:44 AM EDT History and Physical Notes * HPI (History [...]
--- OUTSIDE RECORDS SUMMARY | 2024-06-30 11:15 | XMS_ITS ---
[facility] Address [address] [place] [id number] Care Team Providers Care Fried Cake Maker Name Role Phone Jessa Tinajero Primary Care Provider [phone] Tommy Leiva Unavailable [phone] Allergies No Known Allergies Reason For Referral Reason [facility] for vestibular t raining Diagnosis 1 Vertigo (R42) [facility] Referring Provider First Name Tommy Hollis Referring Provider Last Name Abbie Referring Provider Speciality Family Pra ctice Referred Provider Physical Therapy, . Referred Provider Specialty Physical The rapist General Notes Yoselin Atwood 2024 08:58:57 AM > faxed to [facility] PT Referral Priority Routine REASON FOR [...] Status W/U Status Risk Notes Problem Tinnitus (59771998) Tinnitus (H93.19) Active confirmed Problem Hearing loss (H91.90) Active confirmed Vital Signs Blood pressure systolic 122 mm Hg 07/01/19 25 Blood pressure diastolic 74 mm Hg 025 Heart Rate 56 /min 06/30/2024 Height 72 in 06/30/2024 Weight 239.6 lbs 06/30/2024 BMI 32.49 kg/m2 06/30/2024 Encounters Encounter Location Date Provider Diagnosis [facility] [address] [facility] [address] [facility] [address] [place] [id number] 06/30/2024 Tommy Leiva Vertigo R42 ; Tinnitus [...] 06/30/2024 Referrals Referral Date Details 06/30/2024 06/30/2024, [facility] for vestibular training , . Physical Therapy Next Appt Details Follow Up: after consultatio n, Reason: Provider Name:Jessa Lagunas , 10/16/2024 09:30:00 AM, [address] [facility] [address] [facility], [address], [place], [id number], Progress Notes * HAWA BLANCO ADOB:1965 ([age] yo F)Acc No.[id number]:06/30/2024 Patient: HAWA ABAD Provider: Tommy Leiva M.D. :1965 A ge:59 Y S ex:Female Date:06/30/2024 Address:[address], [place], [id number] Pcp:Jessa Tinajero Subjective: * Chief Complaints: * [...] 06/2015. * Hospitalization/Major Diagno stic Procedure: [facility] ER-headache 02/2011, [facility] ER-congestion 03/03/2015, [facility] Angina 03/19-12/2016. * Family History: F [...] Treatment: ? Referral To:. Physical Therapy??Physical Therapist ?Reason:[facility] for vestibular training 2.?Tinnitus?Imaging: MRI : Brain w/o contrast* Yoselin Atwood 07/01/2024 08:5 3:41 AM > auth#[id number]; valid 07/01/2024 through 07/30/2024; CPT code 38827; faxed to [facility] Scheduling 3.?Hearing loss?Imaging: MRI : Brain w/o contrast* Yoselin Atwood 07/01/2024 08:5 3:41 AM > auth#[id number]; valid 07/01/2024 through 07/30/2024; CPT code 28523; faxed to [facility] Scheduling Notes: Audiometry pending today.??4.?Others? Start Ondansetron HCl Tablet, 4 MG, 1 tablet, Orally, three times a day prn nausea, 15.?? Notes: Keep ENT follow-up appointment as scheduled on 07/20/2024?? * Procedure Codes: 3 074F SYST BP LT 130 MM HG, 3078F DIAST BP < 80 MM HG * Follow Up: a fter consultation * Images: Billing Information: * Visit Code: 76062 Office Visit, Est Pt., Level 3. * Procedure Codes: 3074F SYST BP LT 130 MM HG. 3078F DIAST BP < 80 MM HG. * Electronic signature of Tommy Leiva MD on 10/10/2024 at 08:44 AM EDT Sign off status: Pending * Provider: Tommy Leiva M.D. Date: 0 06/30/2024 Generated for Srinivasi mar/Amber/eTransmitting on: 0 10/10/2024 08:44 AM EDT History and Physical Notes * Examination Category [...] es 06/30/2024 Tommy Leiva Physical Therapy, . [facility] for vestibular training
--- OUTSIDE RECORDS SUMMARY | 2024-10-05 05:15 | XMS_ITS ---
Author Organization [facility] Address [address] [place] [address] [address] [place] [id number] Care Team Providers Care Automotive Service Advisor Name Role Phone Jessa Tinajero Primary Care Provider REASON FOR VISIT Lab Order Encounters Encounter Location Date Provider Diagnosis [facility] [address] [facility] 36 [facility] [address] [place] [id number] 10/05/2024 Jessa Tinajero Heart palpitations R00.2 Assessments Encounter Date Diagnosis (ICD Code) Assessment Notes Treatment Notes Treatment Clinical Notes Section Notes 10/05/2024 Heart palpitations (ICD-10 - R00.2) Plan Of Treatment Pending Test Test Name Order Date H-CMP 10/05/2024 Next Appt Details Provider Name:Jessa Lagunas er, 10/16/2024 09:30:00 AM, 12[address] [facility] 36 [facility], [address], [place], [phone], Progress Notes * HAWA BLANCO ADOB:1965 ([age] yo F)Acc No.[id number]:10/05/2024 Patient: HAWA ABAD :1965 A ge:59 Y S ex:Female Address:[address] [facility] [address], [place] [address] Subjective: * Chief Complaints: * L ab Order * Medical History: * Surgical History: * Hospitalization/Major Diagno stic Procedure: * Medications: Objective: * Vitals: * Physical Examination: Assessment: * Assessment: 1. H eart palpitations - R00.2 Plan: * Treatment: * Procedure Codes: * true * Date: Generated for Printi ng/Faxing/eTransmitting on: 0 10/10/2024 08:44 AM EDT
--- OUTSIDE RECORDS SUMMARY | 2024-10-10 08:44 | XMS_ITS | Patient Health Record ---
[facility] Address [address] [facility] [address] [place] [id number] Care Team Providers Care Animal Behaviourist Name Role Phone Jessa Tinajero Primary Care Provider Tommy Leiva Unavailable [phone] Adina Ballesteros Unavailable [phone] Allergies No Known Allergies Results Component Value [...] date:01/15/2024 03:46:28 PM Interpretation:Normal Performing Lab: Notes/Report: CLIA: [id number] Enmanuel Nash MD, [employer] [address] [facility] , [address], [place] [address] Test performed by [employer], [facility] Sodium 144 135-145 mmol/L Potassium 4.3 3.5-5.3 [...] 0.6 <0.2-1.2 mg/dL A/G Ratio 1.4 1.1-2.5 CT Scan : Sinuses, without c ontrast Reviewed date:07/04/2024 09:51:31 PM Interpretation:sinus disease, anatomic variants Performing Lab: Notes/Report: sinus disease, anatomic variants Audiometry with Tympanometry Reviewed date:09/02/2024 04:46:49 PM Interpretation:see 07/20/24 consult Performing Lab: Notes/Report: see 07/20/24 consult Covid test (in house) Reviewed date:05/07/2024 02:17:18 PM Interpretation: Performing Lab: Notes/Report: Result: Neg Influenza Screen (in house) Reviewed date:05/07/2024 02:17:25 PM Interpretation: Performing Lab: Notes/Report: results Pos A Medications Medication SIG (Take, Route, Frequency, Duration) Notes Start Date End Date Status Ondansetron HCl 4 MG 1 tablet Orally thr ee times a day prn nausea 06/30/2024 Active hydroCHLOROthiazide 12.5 MG 1 tablet Ora lly Once a day as needed; Duration: 30 day(s) 10/29/2022 Active Meclizine HCl 25 MG 1 tablet as needed Orally three times a day as needed 07/05/2023 Active Metoprolol Succinate ER 100 MG 1 tab(s) orally once a day; Duration: 90 days Active Cetirizine HCl 10 MG 1 tablet Orally Onc e a day Active Flonase Allergy Relief 50 MCG/ACT 1 spray in each nostril Nasally Twice a day Active Clotrimazole-Betamethasone 1-0.05 % 1 application Externally Twice a day 10/01/2022 Active Multivitamin Adults 50+ - as directed Orally Active Problems Problem Type SNOMED Code ICD Code Onset Dates Problem Status W/U Status Risk Notes Problem Vertigo (815175997) Vertigo (R42) Active confirmed Problem Palpitations (64036373) Heart palpitations (R00.2) Active confirmed Problem Hearing loss (75245507) Hearing loss (H91.90) Active confirmed Problem Bilateral tinnitus (5635118851975) Tinnitus of both ears (H93.13) Active confirmed Problem Nausea (004830737) Nausea (R11.0) Active confirmed Problem Ringing in left ear (9071383296823) Ringing in left ear (H93.12) Active confirmed Problem Tinnitus (08046895) Tinnitus (H93.19) Active confirmed Problem Acute sinusitis (36326877) Subacute sinusitis, unspecified location (J01.90) Active confirmed Problem Tinnitus (72653103) Ringing in ear, right (H93.11) Active confirmed Problem Closed nondisplaced fracture of left patella with routine healing, unspecified fracture morphology, subsequent encounter (S82.002D) Active confirmed Vital Signs Heart Rate 56 /min 06/30/2024 Blood pressure diastolic 74 mm Hg 06/30/2024 Height 72 in 06/30/2024 Blood pressure systolic 122 mm Hg 06/30/2024 Weight 239.6 lbs 06/30/2024 BMI 32.49 kg/m2 06/30/2024 Encounters Encounter Location Date Provider Diagnosis [facility] [facility] [facility] [address] [place], [place] [phone] 01/10/2024 J Aamir Tinajero Heart palpitations R00.2 and Acute sore throat J02.9 [facility] [facility] [facility] [address] [place], [place] [id number] 04/17/2024 J Aamir Tinajero Heart palpitations R00.2 and Closed nondisplaced fracture of left patella with routine healing, unspecified fracture morphology, subsequent encounter S82.002D [facility] [facility] [address] [place], [place] [id number] 05/07/2024 Adina Crowdy Influenza A J10.1 [facility] [facility] [facility] [address] [place], [place] [id number] 06/02/2024 R Bunny Abbie Vertigo R42 and Tinnitus of both ears H93.13 [facility] [facility] [facility] [address] [place], [place] [id number] 06/30/2024 R Bunny Abbie Vertigo R42 ; Tinnit us H93.19 and Hearing loss H91.90 [facility] [address] [place], [place] [id number] 03/10/2024 Jessa Tinajero Heart palpitations R00.2 [facility] [address] [place], [place] [id number] 06/08/2024 Jessa Tinajero [facility] [address] [place], [place] [id number] 09/16/2024 J Aamir Tinajero Heart palpitations R00.2 [facility] [address] [place], [place] [id number] 10/05/2024 J Aamir Tinajero Heart palpitations R00.2 Assessments Encounter Date Diagnosis (ICD Code) Assessment Notes Treatment Notes Treatment Clinical Notes Section Notes 01/10/2024 Heart palpitations (ICD-10 - R00.2) 01/10/2024 Acute sore throat (ICD-10 - J02.9) 06/30/2024 Vertigo (ICD-10 - R42) 06/30/2024 Tinnitus (ICD-10 - H93.19) 06/02/2024 Vertigo (ICD-10 - R42) 06/02/2024 Tinnitus of both ears (ICD-10 - H93.13) 05/07/2024 Influenza A (ICD-10 - J10.1) Rest, fluids, tylenol or motrin for fevers. Home until fever free for 24-48 hours without the use of medication. 04/17/2024 Heart palpitations (ICD-10 - R00.2) continue current therapy 04/17/2024 Closed nondisplaced fracture of left patella with routine healing, unspecified fracture morphology, subsequent encounter (ICD-10 - S82.002D) 10/05/2024 Heart palpitations (ICD-10 - R00.2) 09/16/2024 Heart palpitations (ICD-10 - R00.2) 03/10/2024 Heart palpitations (ICD-10 - R00.2) 06/30/2024 Hearing loss (ICD-10 - H91.90) Audiometry pending today. 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 Will proceed with audiometry with tympanometry and CT scan of sinuses as previously recommended by ENT. 06/30/2024 Other Keep ENT follow-up appointment as scheduled on 07/20/2024 Plan Of Treatment Pending Test Test Name Order Date Audiometry 06/02/2024 MRI : Brain w/o contrast 06/30/2024 H-CMP 10/05/2024 Next Appt Details Provider Name:Jessa Rutledge Janneth er, 10/16/2024 09:30:00 AM, [address], [address], [place], [place], [phone], Insurance Providers Payer Name Payer Address Payer Phone Subscriber Number Group Number Insured Name Patient Relationship to Insured Coverage Start Date Coverage End Date [employer] [address] [place] [address] [id number] HAWA BLANCO Self - patient is the insured Medications Administered Medication Instructions Date of Administration Dosage Notes Dexamethasone 01/10/2010 1 mL Dexamethasone 10/18/2012 1 mL Medical (General) History Medical History History ICD Code cancer- cervical Right rotator tear, s/p repair 201506/03/23 Cologuard negative 03/21/2024 fibular fx, left Surgical History Surgery Date(Month/Year) partial hysterectomy bilateral varicose vein closure-Dr. Cardoso art 02/2007 Right Shoulder Surgery 06/2015 Hospitalization History Reason Date(Month/Year) [facility] Angina 03/19-12/2016 [facility] ER-congestion 03/03/2015 [facility]-headache 02/2011
[2024-10-10 09:49] LABS: Albumin Level 3.3 g/dl (3.5-5.0); Chloride 104 mmol/L (98-107); Sodium 137 mmol/L (136-145)
[2024-10-10 09:50] LABS: Potassium 3.8 mmoL/L (3.5-5.1)
[2024-10-10 09:52] LABS: Alanine Aminotransferase 29 U/L (12-78); Anion Gap 6.8 mEq/L (5-15); Aspartate Amino Transferase 35 U/L (14-36); Blood Urea Nitrogen 12 mg/dl (7-17); Carbon Dioxide 30 mmol/L (22.0-30.0); Creatinine,Serum 0.70 mg/dl (0.52-1.04); Estimated Glomerular Filt Rate 86 ml/min (>60); GFR (African American) 104 ML/MIN (>60)
[2024-10-10 09:53] LABS: Albumin/Globulin Ratio 0.9 (1.1-1.8); Alkaline Phosphatase 69 U/L (38-126); Bilirubin,Total 0.3 mg/dl (0.2-1.3); Calcium 9.5 mg/dl (8.4-10.2); Globulin 3.8 g/dL (1.3-3.2); Glucose 131 mg/dl (74-100); Total Protein,Serum 7.1 g/dl (6.3-8.2)
== END 2024-10-10 23:59 | disposition home or self-care (01) ==
LOC: LAB 08:42
PROVIDERS: PCP Family Medicine; Visit Provider Family Medicine
DX: R00.2 Palpitations (principal)
CPT/HCPCS: 36415; 80053

== ENCOUNTER 2025-03-08 13:24 | Outpatient (CLI) | payer BC, SELFPAY ==
--- OUTSIDE RECORDS SUMMARY | 2024-01-10 05:15 | XMS_ITS ---
[facility] Address [address] [facility] [address] [place] [id number] Care Team Providers Care Outreach Representative Name Role Phone Jessa Tinajero Primary Care Provider [phone] Allergies No Known Allergies Results Component Value Reference Range Notes CBC Venipuncture (in house) Reviewed date:01/14/2024 11:41:02 AM Interpretation: Performing Lab: Notes/Report: wbc 5.5 3.5 - 10 lymph 29.8% 15 - 50 mid 8.1% 2 - 15 gran 62.1% 35 - 80 rbc 4.59 3.5 - 5.5 hgb 14.2 11.5 - 16.5 hct 42.9 35 - 55 mcv 93.5 75 - 100 mch 31.1 25 - 35 mchc 33.2 31 - 38 platlet 187 100 - 400 CBC Venipuncture (in house) Reviewed date:01/14/2024 11:41:02 AM Interpretation: Performing Lab: Notes/Report: wbc 5.5 3.5 - 10 lymph 29.8% 15 - 50 mid 8.1% 2 - 15 gran 62.1% 35 - 80 rbc 4.59 3.5 - 5.5 hgb 14.2 11.5 - 16.5 hct 42.9 35 - 55 mcv 93.5 75 - 100 mch 31.1 25 - 35 mchc 33.2 31 - 38 platlet 187 100 - 400 P-Comprehensive Metabolic Pa landon (CMP) Reviewed date:01/15/2024 03:46:28 PM Interpretation:Normal Performing Lab: Notes/Report: Test performed by [address], [employer] [address] [place] [address] , [address], [place] [address] Enmanuel Nash MD, Cloth Neutralizer CLIA: [id number] Sodium 144 135-145 mmol/L Potassium 4.3 3.5-5.3 mmol/L Chloride 106 97-108 mmol/L CO2 27 22-32 mmol/L Glucose 99 65-99 mg/dL BUN 15 6-20 mg/dL Creatinine 0.69 0.50-1.00 mg/dL Calcium 9.1 8.6-10.4 mg/dL eGFR by Creatinine 101 >59 mL/min/1.73m2 Protein 7.0 6.0-8.3 g/dL Albumin 4.1 3.5-5.3 g/dL Alkaline Phosphatase 70 35-121 IU/L ALT (SGPT) 18 <5-47 IU/L AST (SGOT) 22 <5-40 IU/L Bilirubin, Total 0.6 <0.2-1.2 mg/dL A/G Ratio 1.4 1.1-2.5 REASON FOR VISIT 6 month f/u, Needs labs, mammogram, Tdap, & shingles vaccine Medications Medication SIG (Take, Route, Frequency, Duration) Notes Start Date End Date Status Metoprolol Succinate ER 100 MG 1 tab(s) orally once a day; Duration: 90 days Active Clotrimazole-Betamethasone 1-0.05 % 1 application Externally Twice a day 10/01/2022 Active Multivitamin Adults 50+ - as directed Orally Active Meclizine HCl 12.5 MG 1 tablet as needed Orally three times a day as needed 07/05/2023 Active hydroCHLOROthiazide 12.5 MG 1 tablet Ora lly Once a day as needed; Duration: 30 day(s) 10/29/2022 Active Vital Signs Blood pressure systolic 120 mm Hg 01/10/20 24 Blood pressure diastolic 80 mm Hg 024 Heart Rate 54 /min 01/10/2024 Height 72 in 01/10/2024 Weight 235.8 lbs 01/10/2024 BMI 31.98 kg/m2 01/10/2024 Encounters Encounter Location Date Provider Diagnosis [facility] [address] [place] [id number] 01/10/2024 Jessa Tinajero Heart palpitations R00.2 and Acute sore throat J02.9 Assessments Encounter Date Diagnosis (ICD Code) Assessment Notes Treatment Notes Treatment Clinical Notes Section Notes 01/10/2024 Heart palpitations (ICD-10 - R00.2) 01/10/2024 Acute sore throat (ICD-10 - J02.9) Plan Of Treatment Next Appt Details Follow Up: 3 Months, Reason: Provider Name:Jessa Lagunas er, 08/16/2025 09:30:00 AM, [address] [facility] [address], [place], [phone], Progress Notes * Franny BLANCO ADOB:1965 ([age] yo F)Acc No.[id number]:01/10/2024 Patient: Franny ABAD Provider: Jessa Tinajero M.D. :1965 A ge:58 Y S ex:Female Date:01/10/2024 Address:[address] [place] [address], [id number] Subjective: * Chief Complaints: * 1 . 6 month f/u. 2. Needs labs, mammogram, Tdap, & shingles vaccine. * HPI: H PI: The patient is here today for a check up. Pt states she is upset about the loss of her significant other. No new concerns. Pt is fasting. E NT/respiratory: Pt states she woke up this morning with a sore throat. Pt denies any other symptoms. c/o sore throat. Denies : cough. D enies : Fever. D enies : post nasal drainage. D enies : Chest Pain. D enies : Short of Breath. C onstitutional: December 04 had bloodwork at work: Sfnk=827, HDL=52, MMF=990, Nzkh=456, HDL ratio=3.4, Auc=110, A1c=5.8. * ROS: D ERMATOLOGY: no R alex. n o H artur. G ASTROENTEROLOGY: no N ausea. n o V omiting. n o D iarrhea.? U ROLOGY: no D ifficulty urinating. n o B lood in urine. * Medical History: C ancer- cervical, Right rotator tear, s/p repair 2015. * Surgical History: p artial hysterectomy , bilateral varicose vein closure-Dr. Lucas 02/2007, Right Shoulder Surgery 06/2015. * Hospitalization/Major Diagno stic Procedure: [facility] ER-headache 02/18, [facility] ER-congestion 03/03/15, [facility] Angina 03/19/16-03/20/16. * Family History: F ather: alive. M other: , breast cancer. M aternal aunt: heart disease in two aunts, one with valve replacement, the other with stents. 1 son(s) . . Mother with history thyroid disease, Grandmother with goiter. * Social History: C URRENT TOBACCO USE S moking Status: Patient does NOT smoke. C affeine: no. Home smoke detector use: yes. Marital Status: Single. Past smoking status: no, Smoking status: Does not smoke. Alcohol: no. * Medications: T aking Multivitamin Adults 50+ - Tablet as directed Orally , Taking Clotrimazole-Betamethasone 1-0.05 % Cream 1 application Externally Twice a day , Taking hydroCHLOROthiazide 12.5 MG Tablet 1 tablet Orally Once a day as needed , Taking Meclizine HCl 12.5 MG Tablet 1 tablet as needed Orally three times a day as needed , Taking Metoprolol Succinate ER 100 MG Tablet Extended Release 24 Hour 1 tab(s) orally once a day , Medication List reviewed and reconciled with the patient * Allergies: N .K.D.A. Objective: * Vitals: W t:235.8, Temp:98.5, BP:120/80, HR:54, Nurse:BRADLY, Ht: 72, BMI:31.98. * Examination: G eneral Examination: General Appearance: N AD. H EENT: u nremarkable, no nystagmus, TM's normal. O ral cavity: n o lesions, mucosa moist and WNL, no erythema. N lew: s upple, no lymphadenopathy. C hest: n ormal shape and expansion. H eart: RSR. L ungs: c lear to auscultation. N eurologic Exam: I ntact, gait normal. S kin: n ormal, no rash. P eripheral pulses: n ormal (2+) bilaterally. E xtremities:?no leg edema. Assessment: * Assessment: 1. H eart palpitations - R00.2 (Primary) 2 . A cute sore throat - J02.9? Plan: * Treatment: Value Reference Range A /G Ratio 1.4 1.1-2.5 - * A lbumin 4.1 3.5-5.3 - g/dL * A lkaline Phosphatase 70 35-121 - IU/L * A LT (SGPT) 18 <5-47 - IU/L * A ST (SGOT) 22 <5-40 - IU/L * B ilirubin, Total 0.6 <0.2-1.2 - mg/dL * B UN 15 6-20 - mg/dL * C alcium 9.1 8.6-10.4 - mg/dL * C hloride 106 97-108 - mmol/L * C O2 27 22-32 - mmol/L * C reatinine 0.69 0.50-1.00 - mg/dL * G lucose 99 65-99 - mg/dL * P otassium 4.3 3.5-5.3 - mmol/L * S odium 144 135-145 - mmol/L * P rotein 7.0 6.0-8.3 - g/dL * e GFR by Creatinine 101 >59 - mL/min/1.73m2 * Lila Harrington 01/15/2024 3:4 6:21 PM > , Left voicemail informing of normal lab results 2.?Acute sore throat?LAB: CBC Venipuncture (in house) (Collection Date & Time - 01/10/2024)* Value Reference Range w bc 5.5 3.5 - 10 * l ymph 29.8% 15 - 50 * m id 8.1% 2 - 15 * g ran 62.1% 35 - 80 * r bc 4.59 3.5 - 5.5 * h gb 14.2 11.5 - 16.5 * h ct 42.9 35 - 55 * m cv 93.5 75 - 100 * m ch 31.1 25 - 35 * m chc 33.2 31 - 38 * p latlet 187 100 - 400 * Lila Harrington 01/10/2024 11: 24:22 AM > , Provider reviewed results while patient in office. * Procedure Codes: 8 5025 CBC WITH AUTO DIFF, 93737 VENIPUNCT, ROUTINE* * Follow Up: 3 Months * Images: Billing Information: * Visit Code: 54777 Office Visit, Est Pt., Level 4. * Procedure Codes: 12926 CBC WITH AUTO DIFF. 77218 VENIPUNCT, ROUTINE*. * Electronic signature of Jessa Tinajero MD on 03/08/2025 at 01:27 PM EST Sign off status: Pending * Provider: Jessa Tinajero M.D. Date: 03/11/2023 Generated for Srinivasi ng/Fakalebg/eTransmitting on: 01:27 PM EST History and Physical Notes * HPI (History of Present Illness) Category Sub-Category Detail Notes Category Not es ENT/respiratory sore throat Short of Breath Chest Pain cough Fever post nasal drainage Examination Category Sub-Category Detail Notes Category Not es General Examination HEENT: unremarkable , no nystagmus, TM's normal Heart: RSR Lungs: clear to auscultatio n Extremities: no leg edema General Appearance: NAD Skin: normal, no rash Neurologic Exam: Intact, gait normal Neck: supple, no lymphaden opathy Oral cavity: no lesions, mucosa m oist and WNL, no erythema Peripheral pulses: normal (2+) bilatera lly Chest: normal shape and exp ansion
--- OUTSIDE RECORDS SUMMARY | 2024-04-17 04:45 | XMS_ITS ---
Author Organization [facility] Address [address] [facility] [address] [place] [id number] Care Team Providers Care Medical Office Technologist Name Role Phone Jessa Tinajero Primary Care Provider Allergies No Known Allergies REASON FOR VISIT 3 months Medications Medication SIG (Take, Route, Frequency, Duration) Notes Start Date End Date Status Meclizine HCl 12.5 MG 1 tablet as needed Orally three times a day as needed 07/05/2023 Active Metoprolol Succinate ER 100 MG 1 tab(s) orally once a day; Duration: 90 days Active Clotrimazole-Betamethasone 1-0.05 % 1 application Externally Twice a day 10/01/2022 Active hydroCHLOROthiazide 12.5 MG 1 tablet Ora lly Once a day as needed; Duration: 30 day(s) 10/29/2022 Active Multivitamin Adults 50+ - as directed Orally Active Problems Problem Type SNOMED Code ICD Code Onset Dates Problem Status W/U Status Risk Notes Problem Closed nondisplaced fracture of left patella with routine healing, unspecified fracture morphology, subsequent encounter (S82.002D) Active confirmed Vital Signs Blood pressure systolic 120 mm Hg 04/17/19 25 Blood pressure diastolic 74 mm Hg 025 Heart Rate 61 /min 04/17/2024 Height 72 in 04/17/2024 Weight 241.8 lbs 04/17/2024 BMI 32.79 kg/m2 04/17/2024 Encounters Encounter Location Date Provider Diagnosis [facility] [address] [place] [id number] 04/17/2024 Jessa Tinajero Heart palpitations R00.2 and Closed nondisplaced fracture of left patella with routine healing, unspecified fracture morphology, subsequent encounter S82.002D Assessments Encounter Date Diagnosis (ICD Code) Assessment Notes Treatment Notes Treatment Clinical Notes Section Notes 04/17/2024 Heart palpitations (ICD-10 - R00.2) continue current therapy 04/17/2024 Closed nondisplaced fracture of left patella with routine healing, unspecified fracture morphology, subsequent encounter (ICD-10 - S82.002D) Plan Of Treatment Treatment Notes Assessment Notes Heart palpitations continue current the rapy Next Appt Details Follow Up: 6 Months, Reason: Provider Name:Jessa Lagunas er, 08/16/2025 09:30:00 AM, [address] [facility] [address], [address], [place], [id number], Progress Notes * BELLA Franny ADOB:1965 ([age] yo F)Acc No.[id number]:04/17/2024 Progress Notes Patient: Franny ABAD Provider: Jessa Tinajero M.D. :1965 A ge:59 Y S ex:Female Date:04/17/2024 Address:[address] [place] [address] [address] , [facility] Subjective: * Chief Complaints: * 1 . 3 months. * HPI: C ardiology: The patient is here for a 3 month check up. Pt states she has not noticed and palpitations. Pt is not fasting. Denies : Chest Pain. D enies : Short of Breath. D enies : Dizziness. D enies : Palpitations. L eg: left patella cortical Fx 03/2024. * ROS: D ERMATOLOGY: no R alex. n o H artur. G ASTROENTEROLOGY: no N ausea. n o V omiting. n o D iarrhea.? U ROLOGY: no D ifficulty urinating. n o B lood in urine. * Medical History: C ancer- cervical, Right rotator tear, s/p repair 2015, 06/03/23 Cologuard negative, 03/21/24 fibular fx, left. * Surgical History: p artial hysterectomy , bilateral varicose vein closure-Dr. Lucas 02/2007, Right Shoulder Surgery 06/2015. * Hospitalization/Major Diagno stic Procedure: [facility] ER-headache 02/18, [facility] ER-congestion 03/03/15, [facility] Angina 03/19/16-03/20/16. * Family History: F ather: [...] Allergies: N .K.D.A. Objective: * Vitals: W t:241.8, Temp:98.6, BP:120/74, HR:61, Nurse:BRADLY, Ht: 72, BMI:32.79. * Examination: G eneral Examination: General Appearance: N AD. H EENT: u nremarkable.?Oral cavity: n o lesions, mucosa moist and WNL, no erythema. N lew: s upple, no lymphadenopathy. C hest: n ormal shape and expansion. H eart: R SR. L ungs: c lear to auscultation. N eurologic Exam: I ntact, gait normal. S kin: n ormal, no rash.?Peripheral pulses: n ormal. E xtremities: t race leg edema, some tenderness of left knee medially. X-ray showed a cortical fx of patella medial aspect. Likely she sprained medial collateral ligament as well.. Assessment: * Assessment: 1. H eart palpitations - R00.2 (Primary) 2 . C losed nondisplaced fracture of left patella with routine healing, unspecified fracture morphology, subsequent encounter - S82.002D Plan: * Treatment: * Procedure Codes: 3 074F SYST BP LT 130 MM HG, 3078F DIAST BP < 80 MM HG * Follow Up: 6 Months * Images: Billing Information: * Visit Code: 58563 Office Visit, Est Pt., Level 4. * Procedure Codes: 3074F SYST BP LT 130 MM HG. 3078F DIAST BP < 80 MM HG. * Electronic signature of Jessa Tinajero MD on 03/08/2025 at 01:27 PM EST Sign off status: Pending * Provider: Jessa Tinajero M.D. Date: 0 04/17/2024 Generated for Luna manuel/Amber/Linsey on: 1 01:27 PM EST History and Physical Notes * HPI (History of Present Illness) Category Sub-Category Detail Notes Category Not es Cardiology Short of Breath Chest Pain Palpitations Dizziness Examination Category Sub-Category Detail Notes Category Not es General Examination HEENT: unremarkable Heart: RSR Lungs: clear to auscultatio n Extremities: trace leg edema, esther e tenderness of left knee medially. X-ray showed a cortical fx of patella medial aspect. Likely she sprained medial collateral ligament as well. General Appearance: NAD Skin: normal, no rash Neurologic Exam: Intact, gait normal Neck: supple, no lymphaden opathy Oral cavity: no lesions, mucosa m oist and WNL, no erythema Peripheral pulses: normal Chest: normal shape and exp ansion
--- OUTSIDE RECORDS SUMMARY | 2024-05-07 08:15 | XMS_ITS ---
Author [facility] Address [address] [facility] [address] [place] [id number] Care Team Providers Care Density Control Puncher Name Role Phone Jessa Tinajero Primary Care Provider [phone] Adina Ballesteros Unavailable [phone] Allergies No Known Allergies Results Component Value Reference Range Notes Influenza Screen (in house) Reviewed date:05/07/2024 02:17:25 PM Interpretation: Performing Lab: Notes/Report: results Pos A Covid test (in house) Reviewed date:05/07/2024 02:17:18 PM Interpretation: Performing Lab: Notes/Report: Result: Neg REASON FOR VISIT body aches, congestion Medications Medication SIG (Take, Route, Frequency, Duration) Notes Start Date End Date Status Meclizine HCl 12.5 MG 1 tablet as needed Orally three times a day as needed 07/05/2023 Active hydroCHLOROthiazide 12.5 MG 1 tablet Ora lly Once a day as needed; Duration: 30 day(s) 10/29/2022 Active Clotrimazole-Betamethasone 1-0.05 % 1 application Externally Twice a day 10/01/2022 Active Promethazine-DM 6.25-15 MG/5ML 5 ml as n eeded Orally every 6 hrs, prn 05/07/2024 Active Metoprolol Succinate ER 100 MG 1 tab(s) orally once a day; Duration: 90 days Active Tamiflu 75 MG 1 capsule Orally Twi ce a day; Duration: 5 day(s) 05/07/2024 Active Multivitamin Adults 50+ - as directed Orally Active Vital Signs Blood pressure systolic 120 mm Hg 05/07/19 25 Blood pressure diastolic 68 mm Hg 025 Heart Rate 118 /min 05/07/2024 Height 72 in 05/07/2024 Weight 240 lbs 05/07/2024 BMI 32.55 kg/m2 05/07/2024 Encounters Encounter Location Date Provider Diagnosis [facility] [address] [place] [address] 36 [facility] [address] [place] [id number] 05/07/2024 Adina Ballesteros Influenza A J10. 1 Assessments Encounter Date Diagnosis (ICD Code) Assessment Notes Treatment Notes Treatment Clinical Notes Section Notes 05/07/2024 Influenza A (ICD-10 - J10.1) Rest, fluids, tylenol or motrin for fevers. Home until fever free for 24-48 hours without the use of medication. Plan Of Treatment Medication Medication Name Sig Start Date Stop Date Notes Promethazine-DM 6.25-15 MG/5ML 5 ml as n eeded Orally every 6 hrs, prn 05/07/2024 Tamiflu 75 MG 1 capsule Orally Twi ce a day; Duration: 5 day(s) 05/07/2024 Treatment Notes Assessment Notes Influenza A Rest, fluids, tyleno l or motrin for fevers. Home until fever free for 24-48 hours without the use of medication. Next Appt Details Follow Up: prn, Reason: Provider Name:Jessa Lagunas er, 08/16/2025 09:30:00 AM, [facility] 36 [facility], [address], [place], [phone], Progress Notes * Franny BLANCO ADOB:1965 ([age] yo F)Acc No.[id number]:05/07/2024 Progress Notes Patient: Franny ABAD Provider: ROSALVA Ackerman :1965 A ge:59 Y S ex:Female Date:05/07/2024 Address:[address] [place] [address], [id number] Pcp:Jessa Tinajero Subjective: * Chief Complaints: * 1 . Body aches, congestion. * HPI: E NT/respiratory: 59 year old female presents with c/o cough P t complains of dry without any sputum production cough that started yesterday. Associated with bodyaches, fever, nasal congestion. Pt states she feels like she has been hit by a truck. * ROS: D ERMATOLOGY: no R alex. n o H artur. G ASTROENTEROLOGY: no N ausea. n o V omiting. U ROLOGY: no D ifficulty urinating. n o B lood in urine. * Medical History: C ancer- cervical, Right rotator tear, s/p repair 2015, 06/03/23 Cologuard negative, 03/21/2024 fibular fx, left. * Surgical History: p artial hysterectomy , bilateral varicose vein closure-Dr. Lucas 02/2007, Right Shoulder Surgery 06/2015. * Hospitalization/Major Diagno stic [place]: [place] 02[place], [facility] ER-congestion 03/03/2015, [facility] Angina 03/19-12/2016. * Family History: F ather: alive. M [...] Allergies: N .K.D.A. Objective: * Vitals: W t:240, Temp:101.1, BP:120/68, HR:118, O2 Sat:98% on RA, Nurse:nilo, Ht: 72, BMI:32.55. * Examination: E NT/Respiratory: General Appearance: Does not appear to feel well. E ars: a uditory canals normal bilaterally, TM's WNL. N ose : turbinates red, congested.?Sinuses : non tender bilaterally. O ral cavity : erythema without exudate on pharynx. N lew : n o cervical lymphadenopathy. H eart : R RR, normal S1 S2, no murmurs. L ungs: c lear to auscultation bilaterally. Assessment: * Assessment: 1. I nfluisraa A - J10.1 (Primary) Plan: * Treatment: Value Reference Range r esults Pos A * Donya Rawls 05/07/2024 1:36:42 PM > , Provider reviewed results while patient in office.Adina Ballesteros Loyda 05/07/2024 2:17:23 PM > ?LAB: Covid test (in house) (Collection Date & Time - 05/07/2024)* Value Reference Range R esult: Neg Donya Bartlett 05/07/2024 1:37:08 PM > , Provider reviewed results while patient in office.Adina Ballesteros Loyda 05/07/2024 2:17:10 PM > Notes: Rest, fluids, tylenol or motrin for fevers. Home until fever free for 24- 48 hours without the use of medication.?? * Procedure Codes: 9 [address] [place], [address] Flu Test- Nasal Swab, Modifiers: QW , 91493 COVID TEST IN HOUSE, Modifiers: QW * Follow Up: p rn * Images: Billing Information: * Visit Code: 30001 Office Visit, Est Pt., Level 3. * Procedure Codes: [address] [place]. [address] Flu Test- Nasal Swab. Modifiers: QW 36327 COVID TEST IN HOUSE. Modifiers: QW * Electronic signature of ROSALVA Rosa on 03/08/2025 at 01:27 PM EST Sign off status: Pending * Provider: ROSALVA Ackerman Date: 0 05/07/2024 Generated for Luna manuel/Amber/Lauraitting on: 1 01:27 PM EST History and Physical Notes * HPI (History of Present Illness) Category Sub-Category Detail Notes Category Not es ENT/respiratory cough Pt complains of dry without any sputum production cough that started yesterday. Associated with bodyaches, fever, nasal congestion. Pt states she feels like she has been hit by a truck Examination Category Sub-Category Detail Notes Category Not es ENT/Respiratory Oral cavity : erythema without exudate on pharynx Sinuses : non tender bilateral ly Ears: auditory canals norm al bilaterally, TM's WNL Neck : no cervical lymphade nopathy Heart : RRR, normal S1 S2, n o murmurs Lungs: clear to auscultatio n bilaterally General Appearance: Does not appear to f eel well Nose : turbinates red, candice ested
--- OUTSIDE RECORDS SUMMARY | 2024-06-02 10:00 | XMS_ITS ---
Author [facility] Address [address] [facility] [address] [place] [id number] Care Team Providers Care Cone Cleaner Name Role Phone Jessa Tinajero Primary Care Provider Tommy Leiva Unavailable [phone] Allergies No Known Allergies Results Component Value Reference Range Notes CT Scan : Sinuses, without c ontrast Reviewed date:07/04/2024 09:51:31 PM Interpretation:sinus disease, anatomic variants Performing Lab: Notes/Report: sinus disease, anatomic variants REASON FOR VISIT dizzy nauseated Medications Medication SIG (Take, Route, Frequency, Duration) Notes Start Date End Date Status Metoprolol Succinate ER 100 MG 1 tab(s) orally once a day; Duration: 90 days Active hydroCHLOROthiazide 12.5 MG 1 tablet Ora lly Once a day as needed; Duration: 30 day(s) 10/29/2022 Active Multivitamin Adults 50+ - as directed Orally Active Clotrimazole-Betamethasone 1-0.05 % 1 application Externally Twice a day 10/01/2022 Active Meclizine HCl 12.5 MG 1 tablet as needed Orally three times a day as needed 07/05/2023 Active Problems Problem Type SNOMED Code ICD Code Onset Dates Problem Status W/U Status Risk Notes Problem Bilateral tinnitus ([id number]) Tinnitus of both ears (H93.13) Active confirmed Vital Signs Blood pressure systolic 120 mm Hg 06/03/19 25 Blood pressure diastolic 82 mm Hg 025 Heart Rate 74 /min 06/02/2024 Height 72 in 06/02/2024 Weight 241.2 lbs 06/02/2024 BMI 32.71 kg/m2 06/02/2024 Encounters Encounter Location Date Provider Diagnosis [facility] [address] [facility] [address] [place] [phone] 06/02/2024 Tommy Leiva Vertigo R42 and Tinnitus of both ears H93.13 Assessments Encounter Date Diagnosis (ICD Code) Assessment Notes Treatment Notes Treatment Clinical Notes Section Notes 06/02/2024 Vertigo (ICD-10 - R42) 06/02/2024 Tinnitus of both ears (ICD-10 - H93.13) 06/02/2024 Other Symptoms are suspicious for Menieres syndrome. Will proceed with audiometry with tympanometry and CT scan of sinuses as previously recommended by ENT. Plan Of Treatment Medication Medication Name Sig Start Date Stop Date Notes Meclizine HCl 12.5 MG 1 tablet as needed Orally three times a day as needed 07/05/2023 Treatment Notes Assessment Notes Other Symptoms are suspici ous for Menieres syndrome. Will proceed with audiometry with tympanometry and CT scan of sinuses as previously recommended by ENT. Pending Test Test Name Order Date Audiometry 06/02/2024 Next Appt Details Follow Up: after tests, Reas on: Provider Name:Jessa Lagunas er, 08/16/2025 09:30:00 AM, 1210 [facility] 36 [facility], [address], [place], [phone], Progress Notes * Franny BLANCO ADOB:1965 ([age] yo F)Acc No.[id number]:06/02/2024 Progress Notes Patient: Franny ABAD Provider: Tommy Leiva M.D. :1965 A ge:59 Y S ex:Female Date:06/02/2024 Address:[address] [place] [address], [id number] Pcp:Jessa Tinajero Subjective: * Chief Complaints: * 1 . Dizzy nauseated. * HPI: E NT/respiratory: She has been having intermittent bouts of dizziness for several months. She had a particularly severe episode last night associated with nausea and vomiting. She had meclizine at home which she has taken and the dizziness is somewhat improved today. She also reports tinnitus and some changes in her hearing. Denies ear pain. She was seen by Dr. Brown, ENT, about 3 years ago with these complaints and was to have audiometry and CT scan of the sinuses but could not coordinate testing with her work schedule and this was never done. * ROS: D ERMATOLOGY: no R alex. [...] Diagno stic Procedure: [place]head[place] 02/[place], [facility] ER-congestion 03/03/2015, [facility] Angina 03/19-12/2016. * Family History: F ather: [...] Allergies: N .K.D.A. Objective: * Vitals: W t: 241.2, Temp: 98.6, BP: 120/82, HR: 74, Nurse: neptali, Ht: 72, BMI:32.71. * Examination: E NT/Respiratory: General Appearance: N AD. E yes: P ERRLA, sclera clear. E ars: a uditory canals normal bilaterally, TM's WNL. N ose : n ormal, no lesions, nares patent. O ral cavity : n o erythema or exudate seen on pharynx. N lew : n o cervical lymphadenopathy, carotids wihout bruits. H eart : R RR, normal S1 S2, no murmurs.?Lungs: c lear to auscultation bilaterally. Assessment: * Assessment: 1. V ertigo - R42 (Primary) 2 . T innitus of both ears - H93.13 ? Plan: * Treatment: 2.?Tinnitus of both ears?Imaging: Audiometry ?Imaging: CT Scan : Sinuses, without contrast (Performed Date - 06/16/2024)? sinus disease, anatomic variants* Yoselin Atwood 06/08/2024 10:5 7:39 AM > order [id number]; anticipated determination date is 06/10/2024Yoselin Atwood 06/10/2024 11:53:09 AM >received call from [facility]; faxed to Demetrio DelarosaTommy balbuena 07/04/2024 09:50:55 PM > reviewed with patient. Referred to ENT 3.?Others? Notes: Symptoms are suspicious for Menieres syndrome. Will proceed with audiometry with tympanometry and CT scan of sinuses as previously recommended by ENT.?? * Procedure Codes: 3 074F SYST BP LT 130 MM HG, 3079F DIAST BP 80-89 MM HG * Follow Up: a fter tests * Images: Billing Information: * Visit Code: 00287 Office Visit, Est Pt., Level 4. * Procedure Codes: 3074F SYST BP LT 130 MM HG. 3079F DIAST BP 80-89 MM HG. * Electronic signature of Tommy Leiva MD on 03/08/2025 at 01:27 PM EST Sign off status: Pending * Provider: Tommy Leiva M.D. Date: 0 06/02/2024 Generated for Luna manuel/Amber/eTransmitting on: 01:27 PM EST History and Physical Notes * HPI (History of Present Illness) Category Sub-Category Detail Notes Category Not es ENT/respiratory She was seen by Dr. Brown, ENT, about 3 years ago with these complaints and was to have audiometry and CT scan of the sinuses but could not coordinate testing with her work schedule and this was never done. Examination Category Sub-Category Detail Notes Category Not es ENT/Respiratory Oral cavity : no erythema or exudate s een on pharynx Ears: auditory canals norm al bilaterally, TM's WNL Neck : no cervical lymphade nopathy, carotids wihout bruits Heart : RRR, normal S1 S2, n o murmurs Lungs: clear to auscultatio n bilaterally General Appearance: NAD Nose : normal, no lesions, nares patent Eyes: PERRLA, sclera clear
--- OUTSIDE RECORDS SUMMARY | 2024-06-30 10:15 | XMS_ITS ---
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 Referred Provider Specialty Physical The rapist General Notes Yoselin Atwood 2024 08:58:57 AM > faxed to [facility] PT Referral Priority Routine REASON FOR VISIT ER Follow Up/ Discuss Getting MRI Medications Medication SIG (Take, Route, Frequency, Duration) Notes Start Date End Date Status Ondansetron HCl 4 MG 1 tablet Orally thr ee times a day prn nausea 06/30/2024 Active Meclizine HCl 25 MG 1 tablet as needed Orally three times a day as needed 07/05/2023 Active Cetirizine HCl 10 MG 1 tablet Orally Onc e a day Active Flonase Allergy Relief 50 MCG/ACT 1 spray in each nostril Nasally Twice a day Active Multivitamin Adults 50+ - as directed Orally Active hydroCHLOROthiazide 12.5 MG 1 tablet Ora lly Once a day as needed; Duration: 30 day(s) 10/29/2022 Active Metoprolol Succinate ER 100 MG 1 tab(s) orally once a day; Duration: 90 days Active Clotrimazole-Betamethasone 1-0.05 % 1 application Externally Twice a day 10/01/2022 Active Problems Problem Type SNOMED Code ICD Code Onset Dates Problem Status W/U Status Risk Notes Problem Tinnitus (56948641) Tinnitus (H93.19) Active confirmed Problem Hearing loss (30640932) Hearing loss (H91.90) Active confirmed Vital Signs Blood pressure systolic 122 mm Hg 07/01/19 25 Blood pressure diastolic 74 mm Hg 025 Heart Rate 56 /min 06/30/2024 Height 72 in 06/30/2024 Weight 239.6 lbs 06/30/2024 BMI 32.49 kg/m2 06/30/2024 Encounters Encounter Location Date Provider Diagnosis [facility] [address] [facility] [address] [facility] [address] [place], [place] [id number] 06/30/2024 Tommy Leiva Vertigo R42 ; Tinnitus H93.19 and Hearing loss H91.90 Assessments Encounter Date Diagnosis (ICD Code) Assessment Notes Treatment Notes Treatment Clinical Notes Section Notes 06/30/2024 Vertigo (ICD-10 - R42) 06/30/2024 Tinnitus (ICD-10 - H93.19) 06/30/2024 Hearing loss (ICD-10 - H91.90) Audiometry pending today. 06/30/2024 Other Keep ENT follow-up appointment as scheduled on 07/20/2024 Plan Of Treatment Medication Medication Name Sig Start Date Stop Date Notes Ondansetron HCl 4 MG 1 tablet Orally thr ee times a day prn nausea 06/30/2024 Treatment Notes Assessment Notes Hearing loss Audiometry pending t adolfo. Other Keep ENT follow-up a ppointment as scheduled on 07/20/2024 Pending Test Test Name Order Date MRI : Brain w/o contrast 06/30/2024 Referrals Referral Date Details 06/30/2024 06/30/2024, [facility] for vestibular training , . Physical Therapy Next Appt Details Follow Up: after consultatio n, Reason: Provider Name:Jessa Lagunas er, 08/16/2025 09:30:00 AM, [address] [facility], [address], [place], [id number], Progress Notes * Franny BLANCO ADOB:1965 (6 9 yo F)Acc No.[id number]:06/30/2024 Patient: Franny ABAD Provider: Tommy Leiva M.D. :1965 A ge:59 Y S ex:Female Date:06/30/2024 Address:[address], [place], [id number] Pcp:Jessa Tinajero Subjective: * Chief Complaints: * 1 . ER Follow Up/ Discuss Getting MRI. * HPI: H PI: She had another severe episode of sudden onset of vertigo associated with nausea and vomiting that required a trip to the emergency room. Please refer to ER report in chart. She had blood work as well as CT scan with contrast which were noncontributory. She was treated with IV fluids, prednisone, ondansetron, and meclizine. The ER physician suggested an MRI, presumably to rule out acoustic neuroma Since her last visit she had her sinus CT and is to have her audiometry today. She has follow-up scheduled with ENT but not until 07/20/2024. * ROS: D ERMATOLOGY: no R alex. [...] 06/2015. * Hospitalization/Major Diagno stic Procedure: [facility] ER-headache 02/2011, [facility] ER-congestion 03/03/2015, [facility] Angina 03/19-12/2016. * Family History: F [...] smoke. Alcohol: no. * Medications: T aking Flonase Allergy Relief 50 MCG/ACT Suspension 1 spray in each nostril Nasally Twice a day , Taking Cetirizine HCl 10 MG Tablet 1 tablet Orally Once a day , Taking Multivitamin Adults 50+ - Tablet as directed Orally , Taking Clotrimazole-Betamethasone 1-0.05 % Cream 1 application Externally Twice a day , Taking hydroCHLOROthiazide 12.5 MG Tablet 1 tablet Orally Once a day as needed , Taking Metoprolol Succinate ER 100 MG Tablet Extended Release 24 Hour 1 tab(s) orally once a day , Taking Meclizine HCl 25 MG Tablet 1 tablet as needed Orally three times a day as needed , Medication List reviewed and reconciled with the patient * Allergies: N .K.D.A. Objective: * Vitals: W t: 239.6, Temp: 98.2, BP: 122/74, HR: 56, Nurse: BRADLY, Ht: 72, BMI:32.49. * Examination: G eneral Examination: General Appearance: N AD. H EENT: sclera and conjunctiva clear, PERRLA, TM's normal, translucent. N lew: s upple, no lymphadenopathy. H eart: R SR. L ungs: c lear to auscultation. N eurologic Exam: N o nystagmus or focal deficits today. Assessment: * Assessment: 1. V ertigo - R42 (Primary) 2 . T innitus - H93.19 3 . H earing loss - H91.90 Plan: * Treatment: ? Referral To:. Physical Therapy??Physical Therapist ?Reason:[facility] for vestibular training 2.?Tinnitus?Imaging: MRI : Brain w/o contrast* Yoselin Atwood 07/01/2024 08:5 3:41 AM > auth#[id number]; valid 07/01/2024 through 07/30/2024; CPT code 21888; faxed to [facility] Scheduling 3.?Hearing loss?Imaging: MRI : Brain w/o contrast* Yoselin Atwood 07/01/2024 08:5 3:41 AM > auth#[id number]; valid 07/01/2024 through 07/30/2024; CPT code 02086; faxed to [facility] Scheduling Notes: Audiometry pending today.??4.?Others? Start Ondansetron HCl Tablet, 4 MG, 1 tablet, Orally, three times a day prn nausea, 15.?? Notes: Keep ENT follow-up appointment as scheduled on 07/20/2024?? * Procedure Codes: 3 074F SYST BP LT 130 MM HG, 3078F DIAST BP < 80 MM HG * Follow Up: a fter consultation * Images: Billing Information: * Visit Code: 24913 Office Visit, Est Pt., Level 3. * Procedure Codes: 3074F SYST BP LT 130 MM HG. 3078F DIAST BP < 80 MM HG. * Electronic signature of Tommy Leiva MD on 03/08/2025 at 01:26 PM EST Sign off status: Pending * Provider: Tommy Leiva M.D. Date: 0 06/30/2024 Generated for Srinivasi mar/Amber/eTransmitting on: 1 01:26 PM EST History and Physical Notes * Examination Category Sub-Category Detail Notes Category Not es General Examination HEENT: sclera and c onjunctiva clear, PERRLA, TM's normal, translucent Heart: RSR Lungs: clear to auscultatio n General Appearance: NAD Neurologic Exam: No nystagmus or foca l deficits today Neck: supple, no lymphaden opathy Consultation Request Notes Referral Date Referring Provider Referred Provider Not es 06/30/2024 Tommy Leiva Physical Therapy, . [facility] for vestibular training
--- OUTSIDE RECORDS SUMMARY | 2024-10-16 04:30 | XMS_ITS ---
[facility] Address [address] [place] [phone] Care Team Providers Care Beauty Sales Consultant Name Role Phone Jessa Tinajero Primary Care Provider Allergies No Known Allergies Results Component Value Reference Range Notes Glycohemoglobin A1c (in hous e) Reviewed date:10/16/2024 11:01:59 AM Interpretation: Performing Lab: Notes/Report: glycohemoglobin 5.6% 5 - 6.5 % REASON FOR VISIT 6 month checkup, Needs mammogram, Tdap, & shingles vaccine Medications Medication SIG (Take, Route, Frequency, Duration) Notes Start Date End Date Status Triamterene-HCTZ 37.5-25 MG 1 tablet in the morning Orally Once a day Active Flonase Allergy Relief 50 MCG/ACT 1 spray in each nostril Nasally Twice a day Active Meclizine HCl 25 MG 1 tablet as needed O rally three times a day as needed 07/05/2023 Active Ondansetron HCl 4 MG 1 tablet Orally thr ee times a day prn nausea 06/30/2024 Active Metoprolol Succinate ER 100 MG 1 tab(s) orally once a day; Duration: 90 days Active Cetirizine HCl 10 MG 1 tablet Orally Onc e a day Active Multivitamin Adults 50+ - as directed Orally Active Clotrimazole-Betamethasone 1-0.05 % 1 application Externally Twice a day 10/01/2022 Active Terbinafine HCl 250 MG 1 tablet Orally O nce a day; Duration: 42 days 10/16/2024 Active Problems Problem Type SNOMED Code ICD Code Onset Dates Problem Status W/U Status Risk Notes Problem Essential hypertension (91389944) Essential hypertension (I10) Active confirmed Vital Signs Blood pressure systolic 120 mm Hg 10/17/19 25 Blood pressure diastolic 80 mm Hg 025 Heart Rate 50 /min 10/16/2024 Height 72 in 10/16/2024 Weight 233.2 lbs 10/16/2024 BMI 31.62 kg/m2 10/16/2024 Encounters Encounter Location Date Provider Diagnosis [facility] [facility] [address] [place] [id number] 10/16/2024 Jessa Tinajero Essential hypertensi on I10 ; Onychogryposis of toenail L60.2 ; Vertigo R42 and Hyperglycemia R73.9 Assessments Encounter Date Diagnosis (ICD Code) Assessment Notes Treatment Notes Treatment Clinical Notes Section Notes 10/16/2024 Essential hypertension (ICD-10 - I10) 10/16/2024 Onychogryposis of toenail (ICD-10 - L60.2) 10/16/2024 Vertigo (ICD-10 - R42) 10/16/2024 Hyperglycemia (ICD-10 - R73.9) Plan Of Treatment Medication Medication Name Sig Start Date Stop Date Notes Terbinafine HCl 250 MG 1 tablet Orally O nce a day; Duration: 42 days 10/16/2024 Next Appt Details Follow Up: 45 days, Reason: Provider Name:Jesas Lagunas er, 08/16/2025 09:30:00 AM, [address] [facility] [address], [address], [place], [phone], Progress Notes * Franny BLANCO ADOB:1965 ([age] yo F)Acc No.[id number]:10/16/2024 Progress Notes Patient: Jessa SALCIDOESFranny Provider: Jessa Tinajero M.D. :1965 A ge:59 Y S ex:Female Date:10/16/2024 Address:[address] [place] [address], [id number] Subjective: * Chief Complaints: * 1 . 6 month checkup. 2. Needs mammogram, Tdap, & shingles vaccine. * HPI: C ardiology: The patient is here for a check up. Pt states she is doing good and denies any new concerns. Pt is not fasting. 8/2 labs reviewed. Hyperglycemia. A1c is WNL this AM. 59 year old female presents with c/o Palpitations. Denies : Chest Pain. D enies : Short of Breath. D enies : Dizziness. E NT/respiratory: Notes reviewed from ENT regarding the episodes of vertigo.? Recently has been stable. Switch to Triamterene/HCTZ noted. G astroenterology: No GI complaints. D ermatology: C/o thickened toenails. Would like to treat. * ROS: D ERMATOLOGY: no R alex. [...] 06/2015. * [facility]: [facility] ER-congestion 03/03/2015, [facility] Angina 03/19-12/2016. * Family History: [...] smoke. Alcohol: no. * Medications: T aking Triamterene-HCTZ 37.5-25 MG Tablet 1 tablet in the morning Orally Once a day , Taking Flonase Allergy Relief 50 MCG/ACT Suspension 1 spray in each nostril Nasally Twice a day , Taking Cetirizine HCl 10 MG Tablet 1 tablet Orally Once a day , Taking Multivitamin Adults 50+ - Tablet as directed Orally , Taking Clotrimazole-Betamethasone 1-0.05 % Cream 1 application Externally Twice a day , Taking Meclizine HCl 25 MG Tablet 1 tablet as needed Orally three times a day as needed , Taking Ondansetron HCl 4 MG Tablet 1 tablet Orally three times a day prn nausea , Taking Metoprolol Succinate ER 100 MG Tablet Extended Release 24 Hour 1 tab(s) orally once a day * Allergies: N .K.D.A. Objective: * Vitals: W t: 233.2, Temp: 98.4, BP: 120/80, HR: 50, Nurse: BRADLY, Ht: 72, BMI:31.62. * Examination: G eneral Examination: General Appearance: [...] rash.?Peripheral pulses: n ormal. E xtremities: t hickening of the nails especially great toenails bilaterally. Assessment: * Assessment: 1. E ssential hypertension - I10 (Primary) 2 . O nychogryposis of toenail - L60.2 3 . V ertigo - R42 4 . H yperglycemia - R73.9 ? Plan: * Treatment: 2. H yperglycemia L AB: Glycohemoglobin A1c (in house) (Collection Date & Time - 10/16/2024) Value Reference Range g lycohemoglobin 5.6% 5 - 6.5 % * Lila Harrington 10/16/2024 09: 51:33 AM EDT > Provider reviewed results while patient in office. * Procedure Codes: 3 6416 CAPILLARY BLOOD DRAW, 51270 GLYCATED HEMOGLOBIN TEST, Modifiers: QW , 1036F TOBACCO NON-USER, 3044F HG A1C LEVEL LT 7.0%, 3074F SYST BP LT 130 MM HG, 3079F DIAST BP 80-89 MM HG * Follow Up: 4 5 days * Images: Billing Information: * Visit Code: 46181 Office Visit, Est Pt., Level 4. * Procedure Codes: 46477 CAPILLARY BLOOD DRAW. 89468 GLYCATED HEMOGLOBIN TEST. Modifiers: QW 1036F TOBACCO NON-USER. 3044F HG A1C LEVEL LT 7.0%. 3074F SYST BP LT 130 MM HG. 3079F DIAST BP 80-89 MM HG. * Electronic signature of Jessa Tinajero MD on 03/08/2025 at 01:26 PM EST Sign off status: Pending * Provider: Jessa Tinajero M.D. Date: 0 10/16/2024 Generated for Luna manuel/Amber/eTransmitting on: 1 01:26 PM EST History and Physical Notes * HPI (History of Present Illness) Category Sub-Category Detail Notes Category Not es Cardiology Short of Breath Chest Pain Palpitations Dizziness Examination Category Sub-Category Detail Notes Category Not es General Examination HEENT: unremarkable Heart: RSR Lungs: clear to auscultatio n Extremities: thickening of the na ils especially great toenails bilaterally General Appearance: NAD Skin: normal, no rash Neurologic Exam: Intact, gait normal Neck: supple, no lymphaden opathy Oral cavity: no lesions, mucosa m oist and WNL, no erythema Peripheral pulses: normal Chest: normal shape and exp ansion
--- OUTSIDE RECORDS SUMMARY | 2024-12-04 06:45 | XMS_ITS ---
[facility] Organization [facility] Address [address] [place] [id number] Care Team Providers Care Greaser And Oiler Name Role Phone Jessa Tinajero Primary Care Provider Allergies No Known Allergies Results Component Value Reference Range Notes P-Comprehensive Metabolic Pa landon (CMP) Reviewed date:12/08/2024 01:23:26 PM Interpretation:Normal Performing Lab: Notes/Report: Test performed by [facility], [address] , [address], [place] [address] Enmanuel Nahs MD, Merchandiser Retail Representative CLIA: [id number] Sodium 139 135-145 mmol/L Potassium 4.1 3.5-5.3 mmol/L Chloride 102 97-108 mmol/L CO2 27 20-32 mmol/L Glucose 99 65-99 mg/dL BUN 18 6-20 mg/dL Creatinine 0.88 0.50-1.00 mg/dL Calcium 9.1 8.6-10.4 mg/dL eGFR by Creatinine 76 >59 mL/min/1.73m2 Protein 6.9 6.0-8.3 g/dL Albumin 4.1 3.5-5.3 g/dL Alkaline Phosphatase 61 35-121 IU/L ALT (SGPT) 22 <5-47 IU/L AST (SGOT) 26 <5-40 IU/L Bilirubin, Total 0.4 <0.2-1.2 mg/dL A/G Ratio 1.5 1.1-2.5 REASON FOR VISIT 45 days Medications Medication SIG (Take, Route, Frequency, Duration) Notes Start Date End Date Status Meclizine HCl 25 MG 1 tablet as needed O rally three times a day as needed 07/05/2023 Active Ondansetron HCl 4 MG 1 tablet Orally thr ee times a day prn nausea 06/30/2024 Active Clotrimazole-Betamethasone 1-0.05 % 1 application Externally Twice a day 10/01/2022 Active Terbinafine HCl 250 MG 1 tablet Orally O nce a day; Duration: 42 days 10/16/2024 Active Metoprolol Succinate ER 100 MG 1 tab(s) orally once a day; Duration: 90 days Active Multivitamin Adults 50+ - as directed Orally Active Flonase Allergy Relief 50 MCG/ACT 1 spray in each nostril Nasally Twice a day Active Cetirizine HCl 10 MG 1 tablet Orally Onc e a day Active Triamterene-HCTZ 37.5-25 MG 1 tablet in the morning Orally Once a day Active Vital Signs Blood pressure systolic 100 mm Hg 12/05/19 25 Blood pressure diastolic 60 mm Hg 025 Heart Rate 65 /min 12/04/2024 Height 72 in 12/04/2024 Weight 235.6 lbs 12/04/2024 BMI 31.95 kg/m2 12/04/2024 Encounters Encounter Location Date Provider Diagnosis [facility] [address] [place] [id number] 12/04/2024 Jessa Tinajero Onychogryposis of toenail L60.2 and Essential hypertension I10 Assessments Encounter Date Diagnosis (ICD Code) Assessment Notes Treatment Notes Treatment Clinical Notes Section Notes 12/04/2024 Onychogryposis of toenail (ICD-10 - L60.2) 12/04/2024 Essential hypertension (ICD-10 - I10) Plan Of Treatment Medication Medication Name Sig Start Date Stop Date Notes Metoprolol Succinate ER 100 MG 1 tab(s) orally once a day; Duration: 90 days Next Appt Details Follow Up: 2 Months, Reason: Provider Name:Jessa Lagunas er, 08/16/2025 09:30:00 AM, [address], [address], [place], [phone], Progress Notes * Franny BLANCO ADOB:1965 ([age] yo F)Acc No.[id number]:12/04/2024 Progress Notes Patient: J STEFFANIE, Franny A Provider: Jessa Tinajero M.D. :1965 A ge:59 Y S ex:Female Date:12/04/2024 Address:[address], [place], [id number] Subjective: * Chief Complaints: * 1 . 45 days. * HPI: A nkle/Foot: The pt is here for a follow up on Onychomycosis. Pt has been taking the Terbinafine as directed and denies any medication side effects. Pt is here for a check on her liver function. * ROS: C ONSTITUTIONAL: Positive for A cox bransonher physician seen since last visit?, NO Change in medication since last visit?, NO Are you taking antibiotics?, NO Are you taking steroids? NO. D ERMATOLOGY: no R alex. n o [...] Diagno stic Procedure: [place] 02[place], [facility] ER-congestion 03/03/2015, [facility] Angina 03/19-12/2016. * Family History: [...] tab(s) orally once a day , Taking Terbinafine HCl 250 MG Tablet 1 tablet Orally Once a day , Medication List reviewed and reconciled with the patient * Allergies: N .K.D.A. Objective: * Vitals: W t: 235.6, Temp: 98.4, BP: 100/60, HR: 65, Nurse: nilo, Ht: 72, BMI:31.95. * Examination: G eneral Examination: General Appearance: [...] of the nails especially great toenails bilaterally. I cannot see improvement.. Assessment: * Assessment: 1. O nychogryposis of toenail - L60.2 (Primary) 2 . E ssential hypertension - I10 Plan: * Treatment: Value Reference Range A /G Ratio 1.5 1.1-2.5 - * A lbumin 4.1 3.5-5.3 - g/dL * A lkaline Phosphatase 61 35-121 - IU/L * A LT (SGPT) 22 <5-47 - IU/L * A ST (SGOT) 26 <5-40 - IU/L * B ilirubin, Total 0.4 <0.2-1.2 - mg/dL * B UN 18 6-20 - mg/dL * C alcium 9.1 8.6-10.4 - mg/dL * C hloride 102 97-108 - mmol/L * C O2 27 20-32 - mmol/L * C reatinine 0.88 0.50-1.00 - mg/dL * G lucose 99 65-99 - mg/dL * P otassium 4.1 3.5-5.3 - mmol/L * S odium 139 135-145 - mmol/L * P rotein 6.9 6.0-8.3 - g/dL * e GFR by Creatinine 76 >59 - mL/min/1.73m2 * Lila Harrington Ling 12/08/2024 01 :23:18 PM EDT > Left voicemail informing of normal lab results 2.?Essential hypertension? Refill Metoprolol Succinate ER Tablet Extended Release 24 Hour, 100 MG, 1 tab(s), orally, once a day, 90 days, 90 Tablet, Refills 1.?? * Procedure Codes: 1 036F TOBACCO NON-USER, 3074F SYST BP LT 130 MM HG, 3078F DIAST BP < 80 MM HG, G9899 Scrn joseluis perf rslts doc, 3017F COLORECTAL CA SCREEN DOC REV * Preventive Medicine: Screening / Special Tests: M ammogram m ammogram 03/05/25, negative. C olonoscopy C ologuard - negative 05/26/23. * Follow Up: 2 Months * Images: Billing Information: * Visit Code: 99004 Office Visit, Est Pt., Level 3. * Procedure Codes: 1036F TOBACCO NON-USER. 3074F SYST BP LT 130 MM HG. 3078F DIAST BP < 80 MM HG. G9899 Scrn joseluis perf rslts doc. 3017F COLORECTAL CA SCREEN DOC REV. * Electronic signature of Jessa Tinajero MD on 03/08/2025 at 01:26 PM EST Sign off status: Pending * Provider: Jessa Tinajero M.D. Date: 0 12/04/2024 Generated for Srinivasi mar/Amber/eTransmdylan on: 1 01:26 PM EST History and Physical Notes * Examination Category Sub-Category Detail Notes Category Not es General Examination HEENT: unremarkable Heart: RSR Lungs: clear to auscultatio n Extremities: thickening of the na ils especially great toenails bilaterally. I cannot see improvement. General Appearance: NAD Skin: normal, no rash Neurologic Exam: Intact, gait normal Neck: supple, no lymphaden opathy Oral cavity: no lesions, mucosa m oist and WNL, no erythema Peripheral pulses: normal Chest: normal shape and exp ansion
--- OUTSIDE RECORDS SUMMARY | 2025-02-15 06:30 | XMS_ITS ---
[facility] Address [address] [facility] [address] [place] [id number] Care Team Providers Care Car Body Designer Name Role Phone Jessa Tinajero Primary Care Provider Allergies No Known Allergies Reason For Referral Diagnosis 1 Onychogryposis (L60. 2) [facility] Referring Provider First Name Jessa Rutledge Referring Provider Last Name Lior Referring Provider Speciality Family Pra ctice Referred Provider Specialty Podiatry General Notes Yoselin Atwood 2024 12:48:05 PM > faxed to [facility] Podiatry, Yoselin Atwood 02/17/2025 10:02:17 AM >spoke with Jolynn in podiatry; referral has been received Referral Priority Routine REASON FOR VISIT 2 months, Needs mammogram, Tdap, shingles, flu vaccines Medications Medication SIG (Take, Route, Frequency, Duration) Notes Start Date End Date Status Triamterene-HCTZ 37.5-25 MG 1 tablet in the morning Orally Once a day Active Ondansetron HCl 4 MG 1 tablet Orally thr ee times a day prn nausea 06/30/2024 Active Meclizine HCl 25 MG 1 tablet as needed O rally three times a day as needed 07/05/2023 Active Terbinafine HCl 250 MG 1 tablet Orally O nce a day; Duration: 90 days 10/16/2024 Active Metoprolol Succinate ER 100 [...] Orally Active Vital Signs Blood pressure systolic 104 mm Hg 02/16/20 25 Blood pressure diastolic 62 mm Hg 025 Heart Rate 65 /min 02/15/2025 Height 72 in 02/15/2025 Weight 231.4 lbs 02/15/2025 BMI 31.38 kg/m2 02/15/2025 Encounters Encounter Location Date Provider Diagnosis [facility] [address] [facility] [address] [facility] [address] [place] [phone] 02/15/2025 Jessa Tinajero Onychogryposis L60.2 and Essential hypertension I10 Assessments Encounter Date Diagnosis (ICD Code) Assessment Notes Treatment Notes Treatment Clinical Notes Section Notes 02/15/2025 Onychogryposis (ICD-10 - L60.2) 02/15/2025 Essential hypertension (ICD-10 - I10) Plan Of Treatment Referrals Referral Date Details 02/15/2025 02/15/2025 Next Appt Details Follow Up: 6 Months, Reason: Provider Name:Jessa Lagunas er, 08/16/2025 09:30:00 AM, [address] [facility] [address] [facility], [address], [place], [phone], Progress Notes * Franny BLANCO ADOB:1965 ([age] yo F)Acc No.[id number]:02/15/2025 Progress Notes Patient: Franny ABAD Provider: Jessa Tinajero M.D. :1965 A ge:60 Y S ex:Female Date:02/15/2025 Address:[address] [place] [address], [id number] Subjective: * Chief Complaints: * 1 . 2 months. 2. Needs mammogram, Tdap, shingles, flu vaccines. * HPI: H PI: 60 year old female presents with c/o Patient is here today for?a scheduled check up. Pt states she is doing well and has no concerns at this time. D ermatology: She has taken MORE THAN 3 months of Terbinefine. Nails show no improvement. * ROS: C ONSTITUTIONAL: Positive for A nother physician seen since last visit?N, Change in medication since last visit?N, Are you taking antibiotics?N, Are you taking steroids?N. D ERMATOLOGY: no R alex. n o [...] Diagno stic Procedure: [place] 02[place], [facility] ER-congestion 03/03/2015, [facility] Angina 03/19-12/2016. * Family History: F ather: alive. M other: , breast cancer. M aternal aunt: heart disease in two aunts, one with valve replacement, the other with stents. 1 son(s) . . Mother with history thyroid disease, Grandmother with goiter. * Social History: C URRENT TOBACCO USE: No S moking Status: Patient does NOT smoke. [...] N .K.D.A. Objective: * Vitals: W t: 231.4, Temp: 98.0, BP: 104/62, HR: 65, Nurse: SF, Ht: 72, BMI:31.38. * Examination: G eneral Examination: General Appearance: [...] improvement.. Assessment: * Assessment: 1. O nychogryposis - L60.2 (Primary) 2 . E ssential hypertension - I10 Plan: * Treatment: * Procedure Codes: 3 074F SYST BP LT 130 MM HG, 3078F DIAST BP < 80 MM HG * Follow Up: 6 Months * Images: Billing Information: * Visit Code: 91579 Office Visit, Est Pt., Level 3. * Procedure Codes: 3074F SYST BP LT 130 MM HG. 3078F DIAST BP < 80 MM HG. * Electronic signature of Jessa Tinajero MD on 03/08/2025 at 01:27 PM EST Sign off status: Pending * Provider: Jessa Tinajero M.D. Date: 04/18/2024 Generated for Luna manuel/Amber/eTransmitting on: 01:27 PM EST History and Physical Notes * HPI (History of Present Illness) Category Sub-Category Detail Notes Category Not es Dermatology She has taken MORE THAN 3 months of Terbinefine. Nails show no improvement. HPI Patient is here toda y for a scheduled check up. Pt states she is doing well and has no concerns at this time Examination Category Sub-Category Detail Notes Category Not [...] normal Chest: normal shape and exp ansion Consultation Request Notes Referral Date Referring Provider Referred Provider Not es 02/15/2025 Jessa Tinajero ,
--- OUTSIDE RECORDS SUMMARY | 2025-03-08 13:27 | XMS_ITS | Patient Health Record ---
[facility] Address [address] [facility] [address] [place] [id number] Care Team Providers Care Shipping Lead Person Name Role Phone Jessa Tinajero Primary Care Provider [phone] Tommy Leiva Unavailable [phone] Adina Ballesteros Unavailable [phone] Allergies No Known Allergies Results Component Value Reference Range Notes Glycohemoglobin A1c (in hous e) Reviewed date:10/16/2024 11:01:59 AM Interpretation: Performing Lab: Notes/Report: glycohemoglobin 5.6% 5 - 6.5 % P-Comprehensive Metabolic Pa landon (CMP) Reviewed date:12/08/2024 01:23:26 PM Interpretation:Normal Performing Lab: Notes/Report: Test performed by [facility] [address] [place] [address] , [address], [place] [address] Enmanuel Nash MD, Counter Clerk [employer] CLIA: [id number] Sodium 139 135-145 mmol/L Potassium 4.1 3.5-5.3 [...] 0.4 <0.2-1.2 mg/dL A/G Ratio 1.5 1.1-2.5 Audiometry with Tympanometry Reviewed date:09/02/2024 04:46:49 PM Interpretation:see 07/20/24 consult Performing Lab: Notes/Report: see 07/20/24 consult H-CMP Reviewed date:10/12/2024 08:57:04 AM Interpretation:gluc 131, alb 3.3, glob 3.8, a/g 0.9 Performing Lab: Notes/Report: NA 137 136-145 mmol/L K 3.8 3.5-5.1 mmoL/L CL 104 98-107 mmol/L CO2 30 22.0-30.0 mmol/L GAP 6.8 5-15 mEq/L BUN 12 7-17 mg/dl CREATT 0.70 0.52-1.04 mg/dl GFRAA 104 >60 ML/MIN EGFR 86 >60 ml/min GLU 131 74-100 mg/dl CA 9.5 8.4-10.2 mg/dl BILIT 0.3 0.2-1.3 mg/dl AST 35 14-36 U/L ALT 29 12-78 U/L TP 7.1 6.3-8.2 g/dl ALB 3.3 3.5-5.0 g/dl GLOB 3.8 1.3-3.2 g/dL AGRATIO 0.9 1.1-1.8 ALP 69 38-126 U/L Covid test (in house) Reviewed date:05/07/2024 02:17:18 PM Interpretation: Performing Lab: Notes/Report: Result: Neg Influenza Screen (in house) Reviewed date:05/07/2024 02:17:25 PM Interpretation: Performing Lab: Notes/Report: results Pos A CT Scan : Sinuses, without c ontrast Reviewed date:07/04/2024 09:51:31 PM Interpretation:sinus disease, anatomic variants Performing Lab: Notes/Report: sinus disease, anatomic variants Medications Medication SIG (Take, Route, Frequency, Duration) Notes Start Date End Date Status Triamterene-HCTZ 37.5-25 MG 1 tablet in the morning Orally Once a day Active Cetirizine HCl 10 MG 1 tablet Orally Onc e a day Active Flonase Allergy Relief 50 MCG/ACT 1 spray in each nostril Nasally Twice a day Active Clotrimazole-Betamethasone 1-0.05 % 1 application Externally Twice a day 10/01/2022 Active Multivitamin Adults 50+ - as directed Orally Active Ondansetron HCl 4 MG 1 tablet [...] once a day; Duration: 90 days Active Problems Problem Type SNOMED Code ICD Code Onset Dates Problem Status W/U Status Risk Notes Problem Vertigo (259502324) Vertigo (R42) Active confirmed Problem Essential hypertension (85394323) Essential hypertension (I10) Active confirmed Problem Palpitations (42321253) Heart palpitations (R00.2) Active confirmed Problem Hearing loss (64251800) Hearing loss (H91.90) Active confirmed Problem Bilateral tinnitus (9644512826611) Tinnitus of both ears (H93.13) Active confirmed Problem Nausea (708961689) Nausea (R11.0) Active confirmed Problem Ringing in left ear (3684291962900) Ringing in left ear (H93.12) Active confirmed Problem Tinnitus (36184958) Tinnitus (H93.19) Active confirmed Problem Acute sinusitis (55988537) Subacute sinusitis, unspecified location (J01.90) Active confirmed Problem Tinnitus (53094547) Ringing in ear, right (H93.11) Active confirmed Problem Closed nondisplaced fracture of left patella with routine healing, unspecified fracture morphology, subsequent encounter (S82.002D) Active confirmed Vital Signs Heart Rate 65 /min 02/15/2025 Blood pressure diastolic 62 mm Hg 02/15/2025 Height 72 in 02/15/2025 Blood pressure systolic 104 mm Hg 02/15/2025 Weight 231.4 lbs 02/15/2025 BMI 31.38 kg/m2 02/15/2025 Encounters Encounter Location Date Provider Diagnosis [facility] [address] [facility] [address] [place], [place] [phone] 04/17/2024 Jessa Tinajero Heart palpitations R 00.2 and Closed nondisplaced fracture of left patella with routine healing, unspecified fracture morphology, subsequent encounter S82.002D [facility] [address] [place], [place] [phone] 05/07/2024 Adina Ballesteros Influenza A J10.1 [facility] [address] [place], [place] [phone] 06/02/2024 R Bunny Abbie Vertigo R42 and Tinn itus of both ears H93.13 [facility] [address] [place], [place] [id number] 06/30/2024 R Bunny Abbie Vertigo R42 ; Tinnit us H93.19 and Hearing loss H91.90 [facility] [address] [place], [place] [id number] 10/16/2024 J Aamir Tinajero Essential hypertensi on I10 ; Onychogryposis of toenail L60.2 ; Vertigo R42 and Hyperglycemia R73.9 [facility] [address] [place], [place] [id number] 12/04/2024 J Aamir Tinajero Onychogryposis of toenail L60.2 and Essential hypertension I10 [facility] [address] [place], [place] [id number] 02/15/2025 J Aamir Tinajero Onychogryposis L60.2 and Essential hypertension I10 [facility] [address] [place], [place] [phone] 11/03/2024 J Aamir Tinajero [facility] [address] [place], [place] [id number] 12/15/2024 J Aamir Tinajero [facility] [address] [place], [place] [id number] 03/10/2024 Jessa Tinajero Heart palpitations R 00.2 [facility] [address] [facility] [address] [place], [place] [id number] 06/08/2024 J Aamir Tinajero [facility] [address] [place] [id number] 09/16/2024 Jessa Tinajero Heart palpitations R 00.2 [facility] [address] [place] [id number] 10/05/2024 Jessa Tinajero Heart palpitations R 00.2 [facility] [address] [facility] [address] [place] [id number] 10/12/2024 Jessa Tinajero [facility] [address] [place] [id number] 12/16/2024 Jessa Tinajero Onychogryposis of toenail L60.2 [facility] [address] [place] [id number] 02/02/2025 Jessa Tinajero Assessments Encounter Date Diagnosis (ICD Code) Assessment Notes Treatment Notes Treatment Clinical Notes Section Notes 03/10/2024 Heart palpitations (ICD-10 - R00.2) 04/17/2024 Heart palpitations (ICD-10 - R00.2) continue current therapy 04/17/2024 Closed nondisplaced fracture of left patella with routine healing, unspecified fracture morphology, subsequent encounter (ICD-10 - S82.002D) 05/07/2024 Influenza A (ICD-10 - J10.1) Rest, fluids, tylenol or motrin for fevers. Home until fever free for 24-48 hours without the use of medication. 06/02/2024 Vertigo (ICD-10 - R42) 06/02/2024 Tinnitus of both ears (ICD-10 - H93.13) 06/30/2024 Vertigo (ICD-10 - R42) 06/30/2024 Tinnitus (ICD-10 - H93.19) 09/16/2024 Heart palpitations (ICD-10 - R00.2) 10/05/2024 Heart palpitations (ICD-10 - R00.2) 10/16/2024 Essential hypertension (ICD-10 - I10) 10/16/2024 Onychogryposis of toenail (ICD-10 - L60.2) 12/04/2024 Onychogryposis of toenail (ICD-10 - L60.2) 12/16/2024 Onychogryposis of toenail (ICD-10 - L60.2) 02/15/2025 Onychogryposis (ICD-10 - L60.2) 02/15/2025 Essential hypertension (ICD-10 - I10) 12/04/2024 Essential hypertension (ICD-10 - I10) 10/16/2024 Vertigo (ICD-10 - R42) 06/30/2024 Hearing loss (ICD-10 - H91.90) Audiometry pending today. 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 Will proceed with audiometry with tympanometry and CT scan of sinuses as previously recommended by ENT. 06/30/2024 Other Keep ENT follow-up appointment as scheduled on 07/20/2024 Plan Of Treatment Pending Test Test Name Order Date Audiometry 06/02/2024 MRI : Brain w/o contrast 06/30/2024 Next Appt Details Provider Name:Jessa Lagunas er, 08/16/2025 09:30:00 AM, [address], [address], [place], [place], [id number], Insurance Providers Payer Name Payer Address Payer Phone Subscriber Number Group Number Insured Name Patient Relationship to Insured Coverage Start Date Coverage End Date [employer] [address] [place] [address] [id number] Franny Moreno Self - patient is the insured Medications [...] Shoulder Surgery 06/2015 Hospitalization History Reason Date(Month/Year) [facility] Angina 03/19-12/2016 [facility] ER-congestion 03/03/2015 [place] ER-headache 02/2011
--- NOTE | 2025-03-08 13:30 | MM_ITS ---
PROCEDURE INFORMATION: Exam: MG Bilateral Screening 3D Mammography Exam date and time: 03/08/2025 1:30 PM Age: 60 years old Clinical indication: Screening examination TECHNIQUE: Imaging protocol: Bilateral Screening tomosynthesis and 2D mammography including computer-aided detection (CAD) when performed. COMPARISON: 1. MG MM DIG SCREENING MAMM BI W/CAD 03/05/2024 7:50 AM 2. MG MM DIG SCREENING MAMM BI W/CAD 01/28/2023 10:58 AM FINDINGS: MAMMOGRAPHY: Breast composition: There are scattered areas of fibroglandular density. Mass: None. Architectural distortion: None. Calcifications: No suspicious calcifications. Asymmetric density: None. Skin thickening: None. Axillary adenopathy: None. IMPRESSION: No mammographic evidence of malignancy. Annual screening is recommended unless otherwise clinically indicated. ASSESSMENT: BI-RADS Category 1: Negative.
== END 2025-03-08 23:59 | disposition home or self-care (01) ==
LOC: RAD 13:24
PROVIDERS: PCP Family Medicine; Visit Provider Obstetrics & Gynecology
DX: C50.911 Malignant neoplasm of unspecified site of right female breast (principal); C50.912 Malignant neoplasm of unspecified site of left female breast; R92.323 Mammographic fibroglandular density, bilateral breasts
CPT/HCPCS: 77063; 77067